=== PATIENT | male | born 1990 | race Caucasian/White ===

== ENCOUNTER 2016-10-23 07:35 | Inpatient (IN) | payer BC, OTHER ==
[~2016-10-23] VITALS: Ht 180.3 cm; Wt 72.6 kg
[~2016-10-23 07:35] MED LIST: Baclofen PO; Benzocaine/Menth/Cetylpyrd Cl MM; CLON0.1T14 PO; DICY20TA28 PO; Famotidine PO; Gabapentin PO; HYDR-3895 PO; Ibuprofen PO; QUET25TA PO; TRAZ-147 PO; Trazodone Hcl PO
[2016-10-24 12:50] VITALS: BP 137/67
--- NOTE | 2016-10-24 12:50 | NUR ---
ADMISSION NOTE ALLERGY-NKDA/NKFA STATUS-FULL CODE HEIGHT-5'11 WEIGHT-160IBS B/P-137/67,HR-106,TEMP-97.7,RR-17, SPO2-100%, PAIN-0/10 PCP-NONE PSYCHIATRIST-NONE PMH-ANXIETY, Bipolar, Crohn disease, Insomnia, Seizure. CIWA-12 COWS-7 Pt is a 25 year old male, admitted on 10/24/16 at 1250 for BENZO/Heroin/Crystal Meth Dependence. Pts skin and body check completed, Pt noted with right arm abscess . Pt awake, alert, oriented x4, gait steady, pt is ambulatory without assistance. Pt is primary source of information, pt is intoxicated and unable to give specifics about his entire medical history and substance use history, information consistent, speech coherent. Pt brought home medications with him which were reconciled. Pt refused Flu and PNA Vaccinations. His last BM was on 10/24/16. Pt states that he is currently unemployed and homeless. Pt states that he smokes 1 pack a day (20 cigarettes). Pt reported being in multiple treatment centers, his most current treatment center was a month ago. Pt stated that he relapsed on the day of his discharge from the center. Pt stated that he achieved 3 months of sobriety and that he relapsed about a month ago. Pt stated that he has not slept for the past 4 days. When asked what his withdrawal symptoms were pt stated that he gets; RESTLESS LEGS, AGITATED, ANXIOUS, TREMORS, CHILLS, VOMITING, AND LEG CRAMPS SUBSTANCE HISTORY: 1.ALPRAZOLAM-USING SINCE LAST WEEK 10/17/16 ON AND OFF, pt unable to verbalize a specific amount that he uses, last used was 10/21/16 AT 2100 2MG 2) KLONOPIN-SINCE LAST WEEK 10/17/16 ON AND OFF, pt unable to verbalize a specific amount that he uses, last used was 10/21/16 AT 2000 4MG 3) HEROIN-Pt reported that the first time he used this drug was about 20 years ago. For the last month he reports using 2 grams of tar heroin IV on daily basis. He stated that his last use was 09/25/16 at 1600 2 grams IV. 4) MARIJUANA- pt reported first using the drug about 20 years ago. Pt reports using unspecified quantity by oral inhalation on daily basis. Pt reported last use on 10/23/16. 5) CRYSTAL METH- Pt does not recall the first time he has used this drug, but sates that he has been using 2 grams IV on daily basis for about a month. He stated that his last use was also on 09/25/16 around 1600 2 grams IV. Pt cooperative, appears agitated and depressed, reports moderate anxiety. Educated on relaxation techniques (deep breathing) pt verbalized understanding. Pt denies SI/HI at this time, Pt reported hallucinations. Skin warm and moist from sweat, color pink, consistent throughout the body, pt reported chills. Eyes PERLLA, tremors noted and felt. Pt reported tingling. All extremities with full ROM. Lung sounds clear bilaterally, no cough present, pt denies SOB. Heart rate regular. Cap refill <3 sec. No edema noted. Abdomen soft, round, bowel sounds active x 4, non tender. Pt denies urinary difficulties, urine was provided and sent to lab. Pt oriented to unit, room, equipment, shown how to use call light, provided returned demonstration. Fall precautions and seizure in place. Side rails up x2, call light within reach, bed locked in low position. Dr Jeff saw pt and with new orders. Pt currently not on any taper but PRN's available for withdrawal. Will continue to monitor.
[2016-10-24] MEDS ORDERED: MIRALAX 17 GM POWD.PACK PO PRN (13:15)
[2016-10-24] MEDS ORDERED: BUPRENORPHINE HCL 2 MG TAB.SUBL SL PRN (13:15)
[2016-10-24] MEDS ORDERED: LORAZEPAM 2 MG/1 ML VIAL IM PRN (13:15)
[2016-10-24] MEDS ORDERED: LOPERAMIDE HCL 2 MG CAPSULE PO PRN ×2 (13:15)
[2016-10-24] MEDS ORDERED: DICYCLOMINE HCL 20 MG TABLET PO PRN (13:15)
[2016-10-24] MEDS ORDERED: ACETAMINOPHEN 325 MG TABLET PO PRN (13:15)
[2016-10-24] MEDS ORDERED: MAGNESIUM HYDROXIDE 30 ML LIQUID UDC PO PRN (13:15)
[2016-10-24] MEDS ORDERED: MAG HYDROX/AL HYDROX/SIMETH 30 ML LIQUID UDC PO PRN (13:15)
[2016-10-24] MEDS ORDERED: ONDANSETRON ODT 4 MG TAB.RAPDIS SL PRN (13:15)
[2016-10-24] MEDS ORDERED: PROMETHAZINE HCL 25 MG/1 ML VIAL IM PRN (13:15)
[2016-10-24] MEDS ORDERED: diphenhydrAMINE 50 MG CAPSULE PO PRN (13:15)
[2016-10-24] MEDS ORDERED: IBUPROFEN 600 MG TABLET PO PRN (13:15)
[2016-10-24] MEDS ORDERED: HYDROXYZINE PAMOATE 25 MG CAPSULE PO PRN (13:15)
[2016-10-24] MEDS ORDERED: LORAZEPAM 1 MG TABLET PO PRN ×2 (13:15)
[2016-10-24] MEDS ORDERED: CLONIDINE HCL 0.1 MG TABLET PO PRN (13:15)
--- NOTE | 2016-10-24 13:34 | NUR ---
PRN ATIVAN Pt noted with anxiety, restless, unable to still still, hallucinations, light headed, CIWA noted 12. Administered Ativan 1 mg as ordered. Safety measures in place, call light within reach. Will cont to monitor and reassess the pt.
--- NOTE | 2016-10-24 14:27 | NUR ---
MD communication Pt noted to be having hallucinations. Notified Dr Simmons, ordered seroquel 100mg PO x 1 now and to call back in 30-60 mins after administration. Orders entered, MD unable to enter orders.
[2016-10-24] MEDS ORDERED: QUETIAPINE FUMARATE 100 MG TABLET PO ONE (14:30)
--- NOTE | 2016-10-24 14:34 | NUR ---
REASSESSMENT Upon reassessment pt reported feeling a lot better, CIWA noted-9. Pt reported medication effective.
[2016-10-24] MEDS: GABAPENTIN 300 MG CAPSULE PO SCH ×2 (14:47→22:20)
--- NOTE | 2016-10-24 14:48 | NUR ---
X1 DOSE OF SEROQUEL Pt still noted having hallucinations, Administered Seroquel 100mg 1 tab as ordered by Dr. Simmons. Will cont to monitor.
[2016-10-24 15:40] LABS: *AMPHETAMINE, URINE POSITIVE (NEGATIVE); *BARBITURATE, URINE NEGATIVE (NEGATIVE); *CANNABINOID, URINE NEGATIVE (NEGATIVE); *COCCAINE, URINE NEGATIVE (NEGATIVE); *OPIATE, URINE POSITIVE (NEGATIVE); *PHENCYCLIDINE SCREEN,URINE NEGATIVE (NEGATIVE)
--- NOTE | 2016-10-24 15:48 | NUR ---
SEROQUEL REASSESSMENT Upon reassessment, pt noted sleeping quietly in his room, no s/s of distress noted. Medication effective. Dr. Iris anthony.
[2016-10-24 16:00] VITALS: BP 141/64
--- NOTE | 2016-10-24 17:04 | NUR ---
CARE ENDORSED All pertinent information given and care endorsed to nurse in charge.
--- NOTE | 2016-10-24 17:10 | NUR ---
START OF SHIFT Received endorsement from day shift nurse. Pt is lying in bed resting. He is a 25 yo male admitted to [facility] today for heroin, bzd, and crystal methamphetamine dependence. He is arousable to verbal stimulation. NKA, full code status, and on a regular diet. He has a PMH of seizure, chron's disease bipolar, and anxiety, On admission he admitted to using xanax 2mg per day since 10/17, klonopin 4 mg per day since 10/17, heroin 1-1.5grams perday since 10/17, and crystal methamphetamine 0.5-1gram per day since 10/17. Pt is resting comfortably in bed. Minimal s/s of withdrawal noted. Fall and seizure precautions in place. Bed is down with call light in reach.
--- NOTE | 2016-10-24 17:30 | NUR ---
IV line insertion 22G IV line started to L forearm, rapid blood return noted. x 3 attempts, pt is a hard stick. Dr Jeff ordered midline for IV vanco infusion, unable to start large bore IV d/t veins infiltrating. Right arm is warm to the touch and edema noted, unable to locate veins on R arm.
[2016-10-24] MEDS: IV NS 1000 ML 1,000 ML IV PRN (17:53)
[2016-10-24 18:05] LABS: BASOPHILS # (AUTO) 0.1 K/uL (0.0-0.2); BASOPHILS % (AUTO) 0.8 % (0.0-2.0); EOSINOPHILS # (AUTO) 0.4 K/uL (0.0-0.7); EOSINOPHILS % (AUTO) 5.8 % (0.0-7.0); HEMATOCRIT 41.5 % (40.0-50.0); HEMOGLOBIN 13.5 g/dL (14.0-18.0); LYMPHOCYTES # (AUTO) 1.6 K/uL (0.8-4.8); LYMPHOCYTES % (AUTO) 25.3 % (20.5-51.5); MEAN CORPUSCULAR HEMOGLOBIN 29.6 uug (27.0-31.0); MEAN CORPUSCULAR HGB CONC 32 g/dL (32.0-37.0); MEAN CORPUSCULAR VOLUME 91.2 fL (82.0-92.0); MONOCYTES # (AUTO) 0.7 K/uL (0.1-1.30); MONOCYTES % (AUTO) 10.9 % (0.0-11.0); NEUTROPHILS # (AUTO) 3.6 K/uL (1.8-8.9); NEUTROPHILS % (AUTO) 57.2 % (38.5-71.5); PLATELET COUNT (AUTO) 322 K/uL (150-450); RED BLOOD CELL COUNT(AUTO) 4.55 MIL/uL (4.70-6.10); WHITE BLOOD COUNT (AUTO) 6.4 K/uL (4.0-11.2)
[2016-10-24] MEDS ORDERED: QUETIAPINE FUMARATE 25 MG TABLET PO PRN (18:15)
[2016-10-24 18:34] LABS: ALANINE AMINOTRANSFERASE 39 U/L (16-63); ALBUMIN 3.6 g/dL (3.4-5.0); ALKALINE PHOSPHATASE 66 U/L (50-136); ASPARTATE AMINOTRANSFERASE 31 U/L (15-37); BILIRUBIN,TOTAL 0.5 mg/dL (0.2-1.0); CALCIUM 8.6 mg/dL (8.5-10.1); CARBON DIOXIDE 27 mmol/L (21-32); CHLORIDE 104 mmol/L (98-107); CREATININE 0.9 mg/dL (0.6-1.3); GFR 104 mL/min (>60); GLUCOSE 101 mg/dL (74-106); POTASSIUM 3.5 mmol/L (3.5-5.1); SODIUM SERUM 141 mmol/L (136-145); TOTAL PROTEIN, SERUM 7.1 g/dL (6.4-8.2); UREA NITROGEN, BLOOD 12 mg/dL (7-18)
[2016-10-24 18:37] LABS: ETHANOL < 3 MG/DL (0-0)
--- NOTE | 2016-10-24 19:08 | NUR ---
CLINICAL PHARMACY NOTE:VANCOMYCIN DOSING Request for vancomycin dosing on 25y/o male 5'11" 160lb for cellulitis Temp 97.7, BUN 12 Scr 0.9 WBC 97.7 Start vancomycin 1gm ivpb q8h estimate trough 14. Trough level to be drawn tomorrow evening. Will continue to monitor
[2016-10-24 19:09] LABS: HIV-1 p24 ANTIGEN NON REACTIVE (NONREACTIVE); HIV-1/2 ANTIBODY NON REACTIVE (NONREACTIVE)
[2016-10-24 20:00] VITALS: BP 124/66
[2016-10-24] MEDS ORDERED: VANCOMYCIN IV 1 G in PREMIXED 0 EACH IV SCH (20:00)
[2016-10-24] MEDS: DOXYCYCLINE HYCLATE 100 MG TABLET PO SCH (22:14)
[2016-10-24] MEDS: METHOCARBAMOL 750 MG TABLET PO PRN (22:32)
--- NOTE | 2016-10-24 22:45 | NUR ---
PRN Robaxin and Ibuprofen Pt woke up and c/o bilateral leg muscle cramping and headache. PRN Robaxin and Ibuprofen administered.
[2016-10-25] VITALS: BP 120/66
--- NOTE | 2016-10-25 01:15 | NUR ---
PRN Zofran Pt woke up and c/o nausea without any episodes of vomiting. PRN Zofran administered.
[2016-10-25] MEDS: IV NS 1000 ML 1,000 ML IV PRN (01:36)
[2016-10-25 04:00] VITALS: BP 121/72
--- NOTE | 2016-10-25 07:01 | NUR ---
Start of Shift Endorsement received from nightshift nurse. Pt is a 25 y/o male admitted for Heroin, Klonopin and Xanax dependence. Pt has been using for the last 7 days after relapsing on 10/17/16. Pt has been placed on a 3 day Subutex taper. Pt is tolerating taper, moderately withdrawing at this time AEB CIWA 5, COWS 9. PT received PRN Robaxin, Motrin and Zofran. Pt reports sleeping 10 hours. VS WNL, Full Code. PT is alert and oriented x4. Pt is in STABLE condition at this time. Remains compliant with medication and diet regimen. All needs have been met, All safety measures in place per hospital policy. Bed in lowest position, side rails up x2, call-light within reach. Will continue to monitor
--- NOTE | 2016-10-25 07:25 | NUR ---
END OF SHIFT Report provided to day shift nurse. Pt is lying in bed resting. He is a 25 yo male admitted to [facility] today for heroin, bzd, and crystal mehtamphetamine dependence. He is arousable to verbal stimulation and ambulatory. NKA, full code status, and on a regular diet. He has a PMH of seizure, chron's disease bipolar, and anxiety, On admission he admitted to using xanax 2mg per day since 10/17, klonopin 4 mg per day since 10/17, heroin 1-1.5grams perday since 10/17, and crystal methamphetamine 0.5-1gram per day since 10/17. He has a 22 gauge IV in the left forearm and receiving IV NS. He is receiving PO abx for cellulitis of the right arm and wrist. PRN Robaxin, Ibuprofen, and Zofran administered. Last COWS 9 and CIWA 5. He drank 100mL and slept 10 hours. Pt received 1500mL of IV fluids. Fall and seizure precautions in place. Bed is down with call light in reach.
[2016-10-25 08:00] VITALS: BP 113/61
[2016-10-25] MEDS ORDERED: TUBERCULIN,PURIF.PROT.DERIV. 5 TU/0.1 ML TEST ID ONE (09:00)
[2016-10-25] MEDS: DOXYCYCLINE HYCLATE 100 MG TABLET PO SCH ×2 (09:23→20:55)
[2016-10-25] MEDS: MULTIVITAMINS,THERAPEUTIC TABLET PO SCH (09:23)
[2016-10-25] MEDS: GABAPENTIN 300 MG CAPSULE PO SCH ×3 (09:23→20:55)
--- NOTE | 2016-10-25 09:25 | NUR ---
PRN Subutex Administered PRN Subutex for COWS score of 13 per protocol. Will Re-assess
--- NOTE | 2016-10-25 09:50 | NUR ---
Medication Re-assessment Medications was effective AEB COWS 6 from COWS 13 prior to medication.
[2016-10-25 12:00] VITALS: BP 108/68
[2016-10-25] MEDS ORDERED: BACLOFEN 20 MG TABLET PO PRN (13:30)
[2016-10-25] MEDS ORDERED: LORAZEPAM 1 MG TABLET PO ONE (13:30)
[2016-10-25] MEDS ORDERED: KETOROLAC TROMETHAMINE 30 MG INJ IM PRN (13:30)
[2016-10-25] MEDS ORDERED: BACLOFEN 20 MG TABLET PO SCH (13:30)
[2016-10-25] MEDS: BUPRENORPHINE HCL 2 MG TAB.SUBL SL SCH ×2 (14:08→20:54)
[2016-10-25 16:00] VITALS: BP 125/68
--- NOTE | 2016-10-25 18:52 | NUR ---
End of Shift Endorsement given to nightshift nurse. Pt is a 25 y/o male admitted for Heroin, Klonopin and Xanax dependence. Pt has been using for the last 7 days after relapsing on 10/17/16. Pt has been placed on a 3 day Subutex taper. Pt is tolerating taper, moderately withdrawing at this time AEB CIWA 3, COWS 8. PT received PRN Subutex for COWS 13, medication was effective AEB COWS of 6. Educated pt on importance of developing the tools to help him stay sober and say no to medication, pt reports readiness for sobriety. Participated in groups and activities.Intake: 1927ml, BM x0, Void x3 . VS WNL, Full Code. PT is alert and oriented x4. Pt is in STABLE condition at this time. Remains compliant with medication and diet regimen. All needs have been met, All safety measures in place per hospital policy. Bed in lowest position, side rails up x2, call-light within reach. Will continue to monitor
[2016-10-25 20:00] VITALS: BP 128/81
--- NOTE | 2016-10-25 20:05 | NUR ---
START OF SHIFT Received report from day shift nurse. Pt attended a group meeting and returned to his room after. He is a 25 yo male admitted to [facility] today for heroin, bzd, and crystal methamphetamine dependence. He is arousable to verbal stimulation. NKA, full code status, and on a regular diet. He has a PMH of seizure, crohn's disease bipolar, and anxiety, On admission he admitted to using xanax 2mg per day since 10/17, klonopin 4 mg per day since 10/17, heroin 1-1.5grams perday since 10/17, and crystal methamphetamine 0.5-1gram per day since 10/17. He started a 3 day subutex taper today. Pt reports chills, flushing, goose bumps and body aches. Taper due tonight. Bed is down with call light in reach. Addendum: 10/26/16 at 0123 by JAE JEAN RN Pt is awake, A&O x4, and ambulatory.
[2016-10-25] MEDS: METHOCARBAMOL 750 MG TABLET PO PRN (20:55)
--- NOTE | 2016-10-25 20:56 | NUR ---
PRN Clonidine and Robaxin Pt c/o chills, anxiety, body aches 7/10, and is noted with goose flesh skin. PRN Clonidine and Robaxin administered.
[2016-10-25] MEDS ORDERED: BUPRENORPHINE HCL 2 MG TAB.SUBL SL SCH (21:00)
--- NOTE | 2016-10-25 22:00 | NUR ---
PRN Clonidine and Robaxin reassessment PRN Clonidine effective. Pt report relief of chills and feels more relaxed. PRN Robaxin somewhat effective. Pt's pain level reduced to 5/10.
[2016-10-26] VITALS: BP 110/60
[2016-10-26] MEDS: TRAZODONE 100 MG TABLET PO SCH ×2 (00:01→22:04)
--- NOTE | 2016-10-26 00:02 | NUR ---
PRN Baclofen Pt reports body aches have increased to 9/10. PRN Baclofen administered.
--- NOTE | 2016-10-26 01:00 | NUR ---
PRN Baclofen administration PRN Baclofen effective. Pt is lying in bed resting with eyes closed. Respirations even and unlabored. Bed is down with call light in reach.
--- NOTE | 2016-10-26 07:03 | NUR ---
Start of Shift Endorsement received from nightshift nurse. Pt is a 25 y/o male admitted for Heroin, Klonopin and Xanax dependence. Pt has been using for the last 7 days after relapsing on 10/17/16. Pt has been placed on a 3 day Subutex taper. Pt is tolerating taper, moderately withdrawing at this time AEB CIWA 3, COWS 6. PT received PRN Baclofen, clonidine and Robaxin. Pt reports sleeping 6 hours. VS WNL, Full Code. PT is alert and oriented x4. Pt is in STABLE condition at this time. Remains compliant with medication and diet regimen. All needs have been met, All safety measures in place per hospital policy. Bed in lowest position, side rails up x2, call-light within reach. Will continue to monitor
--- NOTE | 2016-10-26 07:20 | NUR ---
END OF SHIFT Report provided to day shift nurse. Pt is lying in bed resting. He is a 25 yo male admitted to [facility] today for heroin, bzd, and crystal methamphetamine dependence. He is arousable to verbal stimulation. NKA, full code status, and on a regular diet. He has a PMH of seizure, chron's disease bipolar, and anxiety, On admission he admitted to using xanax 2mg per day since 10/17, klonopin 4 mg per day since 10/17, heroin 1-1.5grams perday since 10/17, and crystal methamphetamine 0.5-1gram per day since 10/17. He started a 3 day subutex taper on 10/25. PRN Clonidine, Robaxin, and Baclofen administered. Last COWS 6 and CIWA 3. He drank 1060mL and slept for 6 hours. Bed is down with call light in reach.
[2016-10-26 08:00] VITALS: BP 105/58
[2016-10-26] MEDS: GABAPENTIN 300 MG CAPSULE PO SCH ×3 (08:35→20:35)
[2016-10-26] MEDS: MULTIVITAMINS,THERAPEUTIC TABLET PO SCH (08:35)
[2016-10-26] MEDS: BUPRENORPHINE HCL 2 MG TAB.SUBL SL SCH ×3 (08:35→20:35)
[2016-10-26] MEDS: DOXYCYCLINE HYCLATE 100 MG TABLET PO SCH ×2 (08:35→20:34)
[2016-10-26 12:00] VITALS: BP 98/63
[2016-10-26 16:00] VITALS: BP 108/66
--- NOTE | 2016-10-26 19:18 | NUR ---
End of Shift Endorsement given to nightshift nurse. Pt is a 25 y/o male admitted for Heroin, Klonopin and Xanax dependence. Pt has been using for the last 7 days after relapsing on 10/17/16. Pt has been placed on a 3 day Subutex taper. Pt is tolerating taper, mildly withdrawing at this time AEB CIWA 2, COWS 5. PT did not receive any prn medications. Educated pt on deep breathing techniques to help relieve mild to moderate anxiety. Participated in groups and activities.Intake: 1696ml, BM x1, Void x4 . VS WNL, Full Code. PT is alert and oriented x4. Pt is in STABLE condition at this time. Remains compliant with medication and diet regimen. All needs have been met, All safety measures in place per hospital policy. Bed in lowest position, side rails up x2, call-light within reach. Will continue to monitor
--- NOTE | 2016-10-26 19:30 | NUR ---
START OF SHIFT NOTE : Pt is a 25 y/o male admitted for Heroin, Klonopin and Xanax dependence. Pt has been using for the last 7 days after relapsing on 10/17/16. Pt has been placed on a 3 day Subutex taper, started on 10/25/2016. Pt is tolerating taper, mildly withdrawing at this time AEB CIWA 2, COWS 5 at 16:00. Pt is in STABLE condition at this time. Remains compliant with medication and diet regimen. All needs have been met, All safety measures in place per hospital policy. Bed in lowest position, side rails up x2, call-light within reach. Will continue to monitor and offer help
[2016-10-26 20:00] VITALS: BP 116/77
[2016-10-27 03:06] LABS: HCV AB >11.0 s/co ratio (0.0-0.9); HEPATITIS B CORE AB, IgM Negative (Negative); HEPATITIS B SURFACE AG Negative (Negative)
--- NOTE | 2016-10-27 06:52 | NUR ---
END OF SHIFT NOTE : Pt is a 25 y/o male admitted for Heroin, Klonopin and Xanax dependence. Pt has been using for the last 7 days after relapsing on 10/17/16. Pt has been placed on a 3 day Subutex taper, started on 10/25/2016. Pt is tolerating taper, mildly withdrawing at this time . Pt is in STABLE condition at this time. Pt remains compliant with the treatment plan. Pt denies nausea, vomiting and diarrhea. No PRNs were given during my shift. V/S remain WNL. RR=16, even and unlabored, lungs clear upon auscultation, abdomen soft and non- distended. Pt denies nausea, vomiting and diarrhea. LAST CIWA=2 ,COWS=2 at 0400 , INTAKE=2,100 ml, voided x 2, stool x2, slept 6 hours. Safety measures in place : bed on lowest position with side rails x2 up for safety, call light within reach. Will continue to monitor closely and offer help.
--- NOTE | 2016-10-27 07:08 | NUR ---
Start of Shift Endorsement received from nightshift nurse. Pt is a 25 y/o male admitted for Heroin, Klonopin and Xanax dependence. Pt has been using for the last 7 days after relapsing on 10/17/16. Pt has been placed on a 3 day Subutex taper. Pt is tolerating taper, mildly withdrawing at this time AEB CIWA 2, COWS 2. PT did not receive any PRN medications. Pt reports sleeping 6 hours. VS WNL, Full Code. PT is alert and oriented x4. Pt is in STABLE condition at this time. Remains compliant with medication and diet regimen. All needs have been met, All safety measures in place per hospital policy. Bed in lowest position, side rails up x2, call-light within reach. Will continue to monitor
[2016-10-27 08:00] VITALS: BP 116/56
[2016-10-27] MEDS ORDERED: BUPRENORPHINE HCL 2 MG TAB.SUBL SL SCH (09:00)
[2016-10-27] MEDS: SERTRALINE HCL 50 MG TABLET PO SCH (09:29)
[2016-10-27] MEDS: DOXYCYCLINE HYCLATE 100 MG TABLET PO SCH (09:29)
[2016-10-27] MEDS: MULTIVITAMINS,THERAPEUTIC TABLET PO SCH (09:29)
[2016-10-27] MEDS: GABAPENTIN 300 MG CAPSULE PO SCH ×3 (09:29→21:50)
[2016-10-27 12:00] VITALS: BP 125/74
[2016-10-27 16:00] VITALS: BP 122/79
[2016-10-27] MEDS ORDERED: Trazodone Hcl PO (18:06)
[2016-10-27] MEDS ORDERED: Ibuprofen PO (18:06)
[2016-10-27] MEDS ORDERED: QUET25TA PO (18:06)
[2016-10-27] MEDS ORDERED: Baclofen PO (18:06)
[2016-10-27] MEDS ORDERED: CLON0.1T14 PO (18:06)
[2016-10-27] MEDS ORDERED: Gabapentin PO (18:06)
[2016-10-27] MEDS ORDERED: DICY20TA28 PO (18:06)
[2016-10-27] MEDS ORDERED: Sertraline Hcl PO (18:06)
[2016-10-27] MEDS ORDERED: HYDR-3895 PO (18:06)
--- NOTE | 2016-10-27 18:58 | NUR ---
End of Shift Endorsement given to nightshift nurse. Pt is a 25 y/o male admitted for Heroin, Klonopin and Xanax dependence. Pt has been using for the last 7 days after relapsing on 10/17/16. Pt has been placed on a 3 day Subutex taper. Pt is tolerating taper, mildly withdrawing at this time AEB CIWA 1, COWS 1. PT did not receive any prn medications. Educated pt on importance of buildings tools necessary for sobriety. PT is scheduled to be discharged on 10/28/16. All documentation has been completed. Participated in groups and activities.Intake: 1700ml, Void x2, BM x1. VS WNL, Full Code. PT is alert and oriented x4. Pt is in STABLE condition at this time. Remains compliant with medication and diet regimen. All needs have been met, All safety measures in place per hospital policy. Bed in lowest position, side rails up x2, call-light within reach. Will continue to monitor
--- NOTE | 2016-10-27 19:25 | NUR ---
Start of Shift Patient Received. Patient is in activities participating in group meeting. Patient is a 25 year old male admitted on 10/24/16 for Opiate and Benzo Dependence, under the care of Dr. Jeff, received a modified Subutex taper. Patient verbalizes no known allergies, wishes to be full code, following a regular diet, skin is noted intact, placed on fall and seizure precautions. Past Medical History noted as Anxiety, Bipolar, HX of Sz, and Crohns Disease. Per endorsement, Patient is set for discharge tomorrow 10/28/16 to [facility]. No PRN Medication administered. Patient still to provide discharge urine drug screen and is aware. All needs attended to promptly. Will continue plan of care as ordered.
[2016-10-27 20:47] VITALS: BP 138/69
[2016-10-27] MEDS: TRAZODONE 100 MG TABLET PO SCH (21:50)
[2016-10-28 00:35] VITALS: BP 125/76
[2016-10-28 01:04] LABS: *AMPHETAMINE, URINE NEGATIVE (NEGATIVE); *BARBITURATE, URINE NEGATIVE (NEGATIVE); *CANNABINOID, URINE NEGATIVE (NEGATIVE); *COCCAINE, URINE NEGATIVE (NEGATIVE); *OPIATE, URINE POSITIVE (NEGATIVE); *PHENCYCLIDINE SCREEN,URINE NEGATIVE (NEGATIVE)
--- NOTE | 2016-10-28 04:17 | NUR ---
Vitals and COWS Patient refused vitals. Patient verbalized "please let me sleep." Patient respirations noted to be 14. COWS not able to be completed as per order. Will continue to monitor. Addendum: 10/28/16 at 0418 by MAK JETER LVN Amended: Links added.
--- NOTE | 2016-10-28 07:12 | NUR ---
End of Shift Patient is in bed sleeping, but easily arousbale to verbal stimuli. Breathing even and non labored. No signs of pain or discomfort noted. Patient is a 25 year old male admitted on 10/24/16 for Opiate and Benzo Dependence, under the care of Dr. Jeff, received a modified Subutex taper. Patient verbalizes no known allergies, wishes to be full code, following a regular diet, skin is noted intact, placed on fall and seizure precautions. Past Medical History noted as Anxiety, Bipolar, HX of Sz, and Crohns Disease. Per endorsement, Patient is set for discharge tomorrow 10/28/16 to [facility]. No PRN Medication administered. All needs attended to promptly. Will endorse to continue plan of care as ordered.
--- NOTE | 2016-10-28 07:30 | NUR ---
Start of shift note: pt is in stable condition no s/s of pain or discomfort. pt is admitted to [facility] for benzo,opiate/meth withdrawal/dependence. pt is sleeping in bed but is able to arouse. pt's v/s checked by [facility] and or within normal limits. pt is set for discharge today pts last cows is 3 and ciwa 4. D/T discharging, will continue to monitor pt for any changes and continue to meet pt's needs
[2016-10-28] MEDS: GABAPENTIN 300 MG CAPSULE PO SCH (08:53)
[2016-10-28] MEDS: SERTRALINE HCL 50 MG TABLET PO SCH (08:53)
[2016-10-28] MEDS: MULTIVITAMINS,THERAPEUTIC TABLET PO SCH (08:53)
--- NOTE | 2016-10-28 10:05 | NUR ---
discharge note: pt left unit in stable condition no s/s of withdrawal, discomfort or pain. pt teaching administered and pt verbalized understanding. pt's personal belongings were returned, pt will be transferred to [facility] via private car
== END 2016-10-28 10:05 | disposition home or self-care (01) | DRG 895 ==
LOC: SRC 10-24 12:13
PROVIDERS: ADMIT Internal Medicine; ATTEND Internal Medicine
PROC: HZ2ZZZZ Detoxification Services for Substance Abuse Treatment (ICD-10-PCS; principal; 2016-10-24)
PROC: HZ41ZZZ Group Counseling for Substance Abuse Treatment, Behavioral (ICD-10-PCS; 2016-10-25)
DX: F11.23 Opioid dependence with withdrawal (principal); L02.413 Cutaneous abscess of right upper limb; L03.113 Cellulitis of right upper limb; F15.23 Other stimulant dependence with withdrawal; F60.3 Borderline personality disorder; F41.9 Anxiety disorder, unspecified; Z83.3 Family history of diabetes mellitus; S51.831S Puncture wound without foreign body of right forearm, sequela; X78.8XXS Intentional self-harm by other sharp object, sequela; F17.210 Nicotine dependence, cigarettes, uncomplicated; Z59.0 Homelessness; G40.909 Epilepsy, unspecified, not intractable, without status epilepticus; B18.2 Chronic viral hepatitis C; F12.10 Cannabis abuse, uncomplicated; D63.8 Anemia in other chronic diseases classified elsewhere; F13.10 Sedative, hypnotic or anxiolytic abuse, uncomplicated; G47.00 Insomnia, unspecified; F32.9 Major depressive disorder, single episode, unspecified; Z59.1 Inadequate housing
CPT/HCPCS: 36415; 70030-TC; 71010; 80307; 80324; 80361; 83735; 85025; 86592; 86705; 86803; 87340; 87806; G6040-TC; J3370; J7030; Q0162; Q0163

== ENCOUNTER 2017-01-10 14:18 | Inpatient (IN) | payer BC, OTHER ==
[~2017-01-10] VITALS: Ht 180.3 cm; Wt 64.9 kg
[~2017-01-10 14:18] MED LIST changes: +Sertraline Hcl PO; -TRAZ-147 PO
[2017-01-10 14:20] VITALS: BP 148/81
--- NOTE | 2017-01-10 14:30 | NUR ---
Initial Assessment Pt is a 26-year-old male, NKA, here for Benzo dependence r/t Xanax 4mg PO daily for 1 month with last use yesterday morning, Opiates r/t Heroin 2g IV/day with last use 20 minutes before admission, methamphetamine $40 worth smoked for 1 month with last use yesterday and Gabapentin capsules dose 300mg each x 20 capsules/d with and extreme total dose of 16,000mg per day with last dose taken today and Dr. Allen is notified with pending Stat orders in process. Pt states that he started use as a teenager for over the last 10 years. HHx: Depression, Anxiety, Borderline Personality d/o, Smoker, Hep C+, Abscesses of FA r/t IV drug use with I&D done during his last stay here, Seizures r/t substance abuse w/d's, Multiple Relapses with return visits here and last stay here from end of September to October. FHx: Pt is confused and can not give me me known information and denies family substance abuse. Pt did not bring home medications. Pt denies having a psychologist or a psychiatrist but has a MD named Dr. Gloria as PCP. Pt is very agitated with anxiety & HR 116-120 bpm, very restlessness, tremors, headache, crawling skin, fatigue, labile, disoriented, generalized pain. Features symmetrical, PERRLA 1-2mm, weakness, mild dizziness with unsteady gait, visual disturbances, spasms of facial features and pt c/o numbness and tingling on scalp. Pt c/o chest pain 8/10 with dull aches and discomforts that are not penetrating or radiating; I notified Dr. Allen with new orders in process. Clear lung sound in bilateral U/L lobes, no SOB or acute respiratory distress present. Pt denies N/V/D yet is having difficulty with BM 's with last one today in small amount. Pt denies dysuria. Skin is not intact with skin lesions on bilateral feet and knees r/t him picking and scratching during anxiety and intoxication and Right FA inflammation which is raised and swollen. T. 97.8 HR 116 RR 20 BP 148/81 SpO2 98% RA Chest Pain 8/10 and Generalized Pain 5/10 COWS 13 CIWA 9
[2017-01-10] MEDS ORDERED: MAG HYDROX/AL HYDROX/SIMETH 30 ML LIQUID UDC PO PRN (14:45)
[2017-01-10] MEDS ORDERED: LOPERAMIDE HCL 2 MG CAPSULE PO PRN (14:45)
[2017-01-10] MEDS ORDERED: DIAZEPAM 5 MG TABLET PO PRN (14:45)
[2017-01-10] MEDS ORDERED: ACETAMINOPHEN 325 MG TABLET PO PRN (14:45)
[2017-01-10] MEDS ORDERED: IBUPROFEN 600 MG TABLET PO PRN (14:45)
[2017-01-10] MEDS ORDERED: MAGNESIUM HYDROXIDE 30 ML LIQUID UDC PO PRN (14:45)
[2017-01-10] MEDS ORDERED: LORAZEPAM 2 MG/1 ML VIAL IM PRN (14:45)
[2017-01-10] MEDS ORDERED: THIAMINE HCL 200 MG/2 ML VIAL IM ONE (14:45)
[2017-01-10] MEDS ORDERED: diphenhydrAMINE 50 MG CAPSULE PO PRN (14:45)
[2017-01-10] MEDS ORDERED: DIAZEPAM 10 MG TABLET PO PRN ×2 (14:45)
[2017-01-10] MEDS ORDERED: BUPRENORPHINE HCL 2 MG TAB.SUBL SL PRN (14:45)
[2017-01-10] MEDS ORDERED: MIRALAX 17 GM POWD.PACK PO PRN (14:45)
--- NOTE | 2017-01-10 15:30 | NUR ---
New Orders, Medication Administration-Valium ONCE New orders for Valium 10mg ONCE and Keppra 1000mg PO given as ordered for w/d restlessness, tremors, crawling skin, fatigue, confusion, generalized pain, weakness, mild dizziness, visual disturbances, spasms of facial features and pt c/o numbness and tingling COWS 13 CIWA 9. Will reassess in 1H.
[2017-01-10] MEDS ORDERED: LEVETIRACETAM 500 MG TABLET PO ONE (15:45)
[2017-01-10] MEDS: DIAZEPAM 10 MG TABLET PO SCH ×2 (15:48→20:03)
[2017-01-10 16:31] LABS: *AMPHETAMINE, URINE POSITIVE (NEGATIVE); *BARBITURATE, URINE NEGATIVE (NEGATIVE); *CANNABINOID, URINE NEGATIVE (NEGATIVE); *COCCAINE, URINE NEGATIVE (NEGATIVE); *OPIATE, URINE POSITIVE (NEGATIVE); *PHENCYCLIDINE SCREEN,URINE NEGATIVE (NEGATIVE)
[2017-01-10 18:00] VITALS: BP 148/81
--- NOTE | 2017-01-10 19:31 | NUR ---
End of Shift Pt is a 26-year old male, NKA, here for Benzo dependence r/t Xanax 4mg PO daily for 1 month with last use yesterday morning, Opiates r/t Heroin 2g IV/day with last use 20 minutes before admission, methamphetamine $40 worth smoked for 1 month with last use yesterday and Gabapentin capsules dose 300mg each x 20 capsules/d with and extreme total dose of 16,000mg per day with last dose taken today; 5 day Subutex and Valium tapers ordered and once time dose of Valium given during my shift. HHx: Depression, Anxiety, Borderline Personality d/o, Smoker, Hep C+, Abscesses of FA r/t IV drug use with I&D done during his last stay here, Seizures r/t substance abuse w/d's, Multiple Relapses with return visits here and last stay here from end of September to October. New orders for CXR, EKG, and labs. UDS obtained. Skin is not intact with multiple lesions in various regions so endorsed to night nurse to f/u with pictures needed. V/S stable, yet HR is elevated at 116-120 at admission and to monitor the V/S. Endorsed to night nurse to do seizure precautions in the room. Last COWS 13 CIWA 5.
[2017-01-10 20:00] VITALS: BP 103/54
--- NOTE | 2017-01-10 20:00 | NUR ---
Start of Shift Note: Report received from day shift nurse. Pt is a 22 Y/O male admitted on 01/10/2017 for medically-supervised withdrawal from opiates, benzodiazepines, gabapentin, and methamphetamine. Pt reports using 1.5-2gm IV heroin, 4mg Xanax PO, $40 worth of IV methamphetamine, and taking 1600mg gabapentin daily for one month. Pt is to start 5-day Valium and Subutex tapers tomorrow. Pt received with last COWS=13, CIWA=5, and Valium ONCE was given during day shift. Full code status, on regular diet, and reports NKA. Pt with unsteady gait, wheelchair assist. Pt reports PMHx: depression, anxiety, borderline personality DO, seizure r/t withdrawal, HEP-C+, multiple abscess: photo documentation (bilateral feet, right FA, bilateral knees, face) endorsed from dayshift. Pt received in room, noted to be restless with moderate tremor. Pt reports anxiety, agitation, diaphoresis, nausea. Bed is in low position and locked, side rails up x2, call light within reach. Will continue to monitor. Addendum: 01/11/17 at 0708 by MARQUIS DC RN Error: patient is 26yo
[2017-01-10] MEDS: LEVETIRACETAM 500 MG TABLET PO SCH (22:18)
--- NOTE | 2017-01-10 22:21 | NUR ---
PRN Valium 20mg: Patient noted with moderate tremor, unable to sit still, agitated. Patient reports nausea, diaphoresis, anxiety, agitation, tactile disturbances, sensitivity to light and sound. CIWA is 24. Administered PRN Valium 20mg PO as ordered according to CIWA score. Will reassess in one hour.
--- NOTE | 2017-01-10 23:25 | NUR ---
PRN Reassessment: Patient noted with decrease in tremor. Patient reports decrease in nausea, diaphoresis, anxiety, agitation, tactile disturbances. CIWA decreased from 24 to 8 one hour after PRN Valium 20mg administration. Will continue to monitor.
[2017-01-11] VITALS: BP 107/57
--- NOTE | 2017-01-11 | NUR ---
COWS/CIWA Deferred: COWS and CIWA deferred for sleep. V/S stable. All safety precautions are in place. Will continue to monitor. Addendum: 01/11/17 at 0045 by MARQUIS DC RN Amended: Links added.
[2017-01-11 04:00] VITALS: BP 92/61
--- NOTE | 2017-01-11 04:38 | NUR ---
PRN Subutex 4mg SL: Patient complains of anxiety, diaphoresis, chills, stomach cramps, 6/10 bone pain, lacrimation. Patient noted yawning multiple times during assessment, unable to sit still. COWS is 15. Administered PRN Subutex 4mg SL as ordered according to COWS score. Will reassess in 30 minutes.
--- NOTE | 2017-01-11 05:10 | NUR ---
PRN Reassessment: Patient reports decrease in anxiety, restlessness, stomach cramps, yawning, pain. COWS decreased from 15 to 8 thirty minutes after PRN Subutex 4mg SL administration. Will continue to monitor.
--- NOTE | 2017-01-11 07:07 | NUR ---
End of Shift Note: Pt is a 22 Y/O male admitted to [facility] on 01/10/2017 for medically-supervised withdrawal from opiates, benzodiazepines, gabapentin, and methamphetamine. Pt reports PMHx: depression, anxiety, borderline personality DO, seizure r/t withdrawal, HEP-C+. Pt is a full code. Pt is on a regular diet. Pt reports NKA. . Pt with unsteady gait, wheelchair assist. Pt reports using 1.5-2gm IV heroin, 4mg Xanax PO, $40 worth of IV methamphetamine, and taking 1600mg gabapentin daily for one month. Pt is to start 5-day Valium and Subutex tapers today. Scheduled medication regime effectively managed s/s of withdrawal this shift, in addition to PRN Valium 20mg for CIWA 24 and PRN Subutex 4mg for COWS 15; both effective. Last COWS=7 at 05:10, CIWA=10 at 04:00. V/S stable throughout shift. Total fluid intake this shift: 757 ml; output: urine x 0 and BM x 0. Pt is currently in bed and slept 6 hours this shift. All needs have been attended and met. Pt endorsed to day shift nurse. Addendum: 01/11/17 at 0708 by MARQUIS DC RN Error: 26 Y/O male, not 22
[2017-01-11 08:00] VITALS: BP 116/67
--- NOTE | 2017-01-11 08:00 | NUR ---
START OF SHIFT NOTE Patient is alert and orientated X 4. Patient slept 6 hours last night according to night nurse. Vital signs stable this morning, last CIWA 7 COWS 8 at 0800. Patient started a 5 say Subutex 5 day Valium taper. Patient appears anxious and complaining of body aches. Patient is laying in bed with respirations even and unlabored. All safety measures in place, call light within reach, bed locked and in lowest position. Will continue to monitor patient.
[2017-01-11] MEDS: DOCUSATE SODIUM 250 MG CAPSULE PO SCH (08:04)
[2017-01-11] MEDS: LEVETIRACETAM 500 MG TABLET PO SCH ×2 (08:04→20:14)
[2017-01-11] MEDS: BUPRENORPHINE HCL 2 MG TAB.SUBL SL SCH ×4 (08:05→20:14)
[2017-01-11] MEDS: FOLIC ACID 1 MG TABLET PO SCH (08:05)
[2017-01-11] MEDS: MULTIVITAMINS,THERAPEUTIC TABLET PO SCH (08:05)
[2017-01-11] MEDS: DIAZEPAM 10 MG TABLET PO SCH ×4 (08:05→20:14)
[2017-01-11] MEDS: THIAMINE HCL 100 MG TABLET PO SCH (08:05)
[2017-01-11] MEDS ORDERED: DIAZEPAM 10 MG TABLET PO PRN ×2 (08:45)
[2017-01-11] MEDS ORDERED: DIAZEPAM 5 MG TABLET PO PRN (08:45)
[2017-01-11] MEDS ORDERED: 5 DAY TAPER VALIUM-SERENITY PROTOCOL PO PRN (09:00)
[2017-01-11] MEDS ORDERED: 5 DAY TAPER BUPRENORPHINE -SERENITY PROTOCOL SL PRN (09:00)
[2017-01-11] MEDS ORDERED: TUBERCULIN,PURIF.PROT.DERIV. 5 TU/0.1 ML TEST ID ONE (09:00)
[2017-01-11 12:12] VITALS: BP 115/60
--- NOTE | 2017-01-11 13:40 | NUR ---
Therapist encouraged client to attend group therapy. Client stated that he would try to attend if he felt up to doing so.
[2017-01-11 16:00] VITALS: BP 114/64
[2017-01-11] MEDS ORDERED: [UNRECOGNIZED DRUG - OTHER] PO SCH (16:15)
[2017-01-11] MEDS ORDERED: QUETIAPINE FUMARATE 25 MG TABLET PO PRN ×2 (16:15→16:30)
[2017-01-11] MEDS: SERTRALINE HCL 50 MG TABLET PO SCH (17:07)
[2017-01-11] MEDS: BACLOFEN 10 MG TABLET PO SCH ×2 (18:51→20:14)
--- NOTE | 2017-01-11 19:10 | NUR ---
END OF SHIFT NOTE Patient is a 26 year old male admitted for heroin, Xanax, meth and gabapentin. His vital sign have been stable throughout the day. Last CIWA 10 COWS 12. Patient is showing signs of withdrawal as evidence by last CIAW/COWS. No prn meds were given . Patient has been resting in his room most of the day. He has been complaint with medications and MDs orders. Patient is on a 5 day Subutex 5 day Ativan taper, tolerating well. Patient has an unstable gait, uses a wheelchair to go to the smoking, uses call system to ask for assistance. All safety measures in place, call light within reach, bed locked and in lowest positions. All needs have been met. Will endorse to oncoming nurse.
[2017-01-11 20:00] VITALS: BP 112/61
--- NOTE | 2017-01-11 20:00 | NUR ---
Start of Shift Note: Report received from day shift nurse. Pt is a 26yo male admitted on 01/10/2017 for medically-supervised withdrawal from benzodiazepines, opiates, gabapentin, and methamphetamine. Pt reports using 1.5-2gm IV heroin, 4mg Xanax PO, $40 worth of IV methamphetamine, and taking 16,000mg gabapentin daily for one month. Pt is on 5-day Valium and Subutex tapers. Pt received with last COWS=12, CIWA=10, and no PRN medications were given during day shift. Full code, regular diet, and reports NKA. Pt with unsteady gait, wheelchair assist. Pt reports PMHx: anxiety, depression, borderline personality DO, seizure r/t withdrawal, HEP-C+. Pt received in room, noted with moderate tremor. Pt reports anxiety, agitation, diaphoresis, severe pain. Bed is in low position and locked, side rails up x2, call light within reach. Will continue to monitor.
[2017-01-11] MEDS: TRAZODONE 100 MG TABLET PO SCH ×2 (20:14→21:48)
[2017-01-11] MEDS ORDERED: [UNRECOGNIZED DRUG - OTHER] PO SCH (21:00)
[2017-01-11] MEDS: METHOCARBAMOL 750 MG TABLET PO PRN (21:48)
--- NOTE | 2017-01-11 21:48 | NUR ---
PRN Robaxin: Patient complains of severe myalgia. Administered PRN Robaxin as ordered. Will continue to monitor.
--- NOTE | 2017-01-11 22:50 | NUR ---
PRN Reassessment: Patient is in bed with eyes closed. Respirations are even and unlabored. No s/s of acute distress noted. PRN Robaxin effective AEB patient's ability to rest. Will continue to monitor.
[2017-01-12] VITALS (7 sets, daily range): BP systolic 95–116; BP diastolic 53–64
--- NOTE | 2017-01-12 04:00 | NUR ---
COWS and CIWA Deferred: COWS and CIWA deferred for sleep. V/S stable. All safety precautions are in place. Will continue to monitor. Addendum: 01/12/17 at 0458 by MARQUIS DC RN Amended: Links added.
--- NOTE | 2017-01-12 06:39 | NUR ---
End of Shift Note: Pt is a 26yo male admitted to [facility] on 01/10/2017 for medically-supervised withdrawal from opiates, benzos, gabapentin, and methamphetamine. Pt reports PMHx: seizure r/t withdrawal, Hep-C+, depression, anxiety, borderline personality DO. Pt is a full code. Pt reports NKA. Pt is on a regular diet. Pt with unsteady gait, wheelchair assist. Pt reports using 1.5-2gm IV heroin, 4mg Xanax PO, $40 worth of IV methamphetamine, and taking 16,000mg gabapentin daily for one month. Pt is on 5-day Valium and Subutex tapers. Scheduled medication regime effectively managed s/s of withdrawal this shift, in addition to PRN Robaxin for myalgia. Last COWS=7, CIWA=9 at 00:00. V/S stable throughout shift. Total fluid intake this shift: 855 ml; output: urine x 1 and BM x 0. Pt is currently in bed and slept 10 hours this shift. All needs have been attended and met. Pt endorsed to day shift nurse.
--- NOTE | 2017-01-12 07:23 | NUR ---
BEGINNING OF SHIFT Patient endorsement report received from journal entry audit clerk nurse, all pertinent information discussed. Patient is a 26 year old male admitted on 01/10/2017, patient currently With ongoing 5 day Subutex and 5 day Valium, taper as ordered, is currently on day 2 of taper. Patient with last ciwa score of: 9 and cow score of: 7. as per journal entry audit clerk. Patient received PRN: Robaxin, during journal entry audit clerk. patient slept for 10 hours. Patient received in room, awake alert and oriented x4, educated regarding plan of care and medication regimen for the day with good verbal understanding. Safety measures in place. call light kept with in reach, will continue to monitor closely.
[2017-01-12] MEDS: LEVETIRACETAM 500 MG TABLET PO SCH ×2 (09:00→21:19)
[2017-01-12] MEDS: DIAZEPAM 10 MG TABLET PO SCH ×3 (09:00→21:16)
[2017-01-12] MEDS: BUPRENORPHINE HCL 2 MG TAB.SUBL SL SCH ×3 (09:01→21:16)
[2017-01-12] MEDS: BACLOFEN 10 MG TABLET PO SCH (09:01)
[2017-01-12] MEDS: DOCUSATE SODIUM 250 MG CAPSULE PO SCH (09:01)
[2017-01-12] MEDS: MULTIVITAMINS,THERAPEUTIC TABLET PO SCH (09:01)
[2017-01-12] MEDS: SERTRALINE HCL 50 MG TABLET PO SCH (09:01)
[2017-01-12] MEDS: THIAMINE HCL 100 MG TABLET PO SCH (09:01)
[2017-01-12] MEDS: FOLIC ACID 1 MG TABLET PO SCH (09:01)
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
[2017-01-12] MEDS ORDERED: DIAZEPAM 5 MG TABLET PO PRN (13:00)
[2017-01-12] MEDS ORDERED: DIAZEPAM 10 MG TABLET PO PRN ×2 (13:00)
[2017-01-12] MEDS: LIDOCAINE 5% PATCH TD SCH (13:16)
[2017-01-12] MEDS: ACETAMINOPHEN ES 500 MG TABLET PO SCH ×2 (13:16→21:19)
[2017-01-12] MEDS: BACLOFEN 20 MG TABLET PO SCH ×2 (14:37→21:19)
[2017-01-12] MEDS ORDERED: BACLOFEN 10 MG TABLET PO SCH (15:00)
--- NOTE | 2017-01-12 15:05 | NUR ---
Therapist advised client of group times. Client is not attending today because he does not feel well.
[2017-01-12] MEDS: NEOMY/BACITRAC/POLYMI OINT 28.35 GM TUBE TOP SCH (17:06)
--- NOTE | 2017-01-12 18:54 | NUR ---
END OF SHIFT Patient alert and oriented x4, vital signs were stable during shift. patient compliant with therapeutic plan of care. 0900 Assessment patient presented with: heart rate of 82, c/o chills, difficulty sitting still, severe bone and joint aches, tremors that can be felt but not seen, irritable, anxiety, barely sweating and mild agitation with cow score of: 8 and ciwa score of: 7; 1300 assessment patient presented with: c/o chills, difficulty sitting still, severe bone and joint aches, tremors that can be felt but not seen, irritable, anxiety, barely sweating, mild agitation with cow score of: 7 and ciwa scor eof: 7; 1700 assessment patient presented with: c/o chills bone and joint aches, anxiety, barely sweating with cow score of: 6 and ciwa score of: 6. 1700 assessment patient presented with: Patient received no PRNs during shift. during shift patient was started on routine Tylenol and lidocaine patch d/t back pain, responding well to treatment effective as per patient. Patient encouraged to attend group therapies/sessions to learn new coping skills to prevent relapse. patient denies any SI/HI. safety measures in place. call light kept with in reach. patient endorsed to lieutenant shift supervisor nurse, all pertinent information discussed. will continue to monitor closely.
--- NOTE | 2017-01-12 20:00 | NUR ---
Start of Shift Note: Report received from day shift nurse. Pt is a 26yo male admitted on 01/10/2017 for medically-supervised withdrawal from benzodiazepines, neurontin, opiates, and methamphetamine. Pt reports using 4mg Xanax, 1.5-2gm IV heroin, $40 worth of IV methamphetamine, and taking 16,000mg neurontin daily for one month. Pt is on 5-day Valium and Subutex tapers. Pt received with last COWS=6, CIWA=6, and no PRN medications were given during day shift. Pt is a full code, on a regular diet, and reports NKA. Wheelchair assist for unsteady gait,. Pt reports PMHx: anxiety, depression, borderline personality DO, seizure r/t withdrawal, HEP-C+. Pt received in room and reports diaphoresis, chills, restlessness, generalized pain, tremor, and anxiety. Bed is in low position and locked, side rails up x2, call light within reach. Will continue to monitor.
[2017-01-12] MEDS: TRAZODONE 100 MG TABLET PO SCH (21:18)
[2017-01-13] VITALS: BP 96/60
--- NOTE | 2017-01-13 | NUR ---
COWS and CIWA Deferred: COWS and CIWA assessments are deferred for sleep. V/S stable. All safety precautions are in place. Will continue to monitor. Addendum: 01/13/17 at 0131 by MARQUIS DC RN Amended: Links added.
--- NOTE | 2017-01-13 04:00 | NUR ---
Vitals Refused, COWS/CIWA Deferred: Patient refuses vitals at this time. COWS/CIWA deferred for sleep. All safety precautions are in place. Will continue to monitor. Addendum: 01/13/17 at 0433 by MARQUIS CD RN Amended: Links added.
[2017-01-13] MEDS: ACETAMINOPHEN ES 500 MG TABLET PO SCH ×3 (05:00→21:37)
--- NOTE | 2017-01-13 06:55 | NUR ---
End of Shift Note: Pt is a 26M admitted on 01/10/2017 for medically-supervised withdrawal from opiates, BZO, neurontin, and methamphetamine. PMHx of SZ, Hep-C+, depression, anxiety, borderline personality DO. Full code, NKA, regular diet. Wheelchair assist for unsteady gait. Pt reported using 1.5-2gm IV heroin, 4mg Xanax, $40 worth of IV methamphetamine, and taking 16,000mg neurontin daily for one month. Pt is to start day 3 of 5-day Valium and Subutex tapers. Scheduled medication regime effectively managed s/s of withdrawal this shift, and no PRN medications were necessary. Last COWS=6, CIWA=7 at 20:00. V/S stable throughout shift. Total fluid intake this shift: 800 ml; output: urine x 1 and BM x 0. Pt is currently in bed and slept 9 hours this shift. All needs attended and met. Pt endorsed to day shift nurse.
[2017-01-13 08:00] VITALS: BP 95/66
--- NOTE | 2017-01-13 08:07 | NUR ---
START OF SHIFT Received patient this morning alert and oriented x4. Patient states he has bad body aches 8/10 on pain scale. He c/o abscess to upper buttock area it feels hardened. Will notify MD. He is on 5 day Valium/5 day Subutex taper. History of seizures. He is placed on seizure precautions. No PRNs given per night nurse. Patient slept 9 hours. COWS 7 CIWA 9 at 0800 this morning. Encouraged patient to drink increased amounts of fluids this shift. Encouraged attendance of groups and activities. Will provide safe and supportive environment. Informed patient to notify RN if s/s of w/d worsen. Will continue to monitor.
[2017-01-13] MEDS: FOLIC ACID 1 MG TABLET PO SCH (08:34)
[2017-01-13] MEDS: THIAMINE HCL 100 MG TABLET PO SCH (08:34)
[2017-01-13] MEDS: BACLOFEN 20 MG TABLET PO SCH ×3 (08:34→21:37)
[2017-01-13] MEDS: MULTIVITAMINS,THERAPEUTIC TABLET PO SCH (08:34)
[2017-01-13] MEDS: SERTRALINE HCL 50 MG TABLET PO SCH (08:34)
[2017-01-13] MEDS: LIDOCAINE 5% PATCH TD SCH (08:35)
[2017-01-13] MEDS: DIAZEPAM 5 MG TABLET PO SCH ×4 (08:35→21:37)
[2017-01-13] MEDS: DOCUSATE SODIUM 250 MG CAPSULE PO SCH (08:35)
[2017-01-13] MEDS: LEVETIRACETAM 500 MG TABLET PO SCH ×2 (08:35→21:38)
[2017-01-13] MEDS: NEOMY/BACITRAC/POLYMI OINT 28.35 GM TUBE TOP SCH ×2 (08:35→16:41)
[2017-01-13] MEDS ORDERED: BUPRENORPHINE HCL 2 MG TAB.SUBL SL SCH (09:00)
[2017-01-13 12:00] VITALS: BP 112/68
[2017-01-13] MEDS ORDERED: DIAZEPAM 10 MG TABLET PO PRN ×2 (12:45)
[2017-01-13] MEDS ORDERED: KETOROLAC TROMETHAMINE 30 MG INJ IM PRN (12:45)
[2017-01-13] MEDS: BUPRENORPHINE HCL 2 MG TAB.SUBL SL SCH ×2 (14:09→21:45)
--- NOTE | 2017-01-13 15:46 | NUR ---
ENDORSED PT TO MINERVA ARIAS Addendum: 01/13/17 at 1600 by SHAAN POLLACK RN disregard
[2017-01-13 16:00] VITALS: BP 109/60
--- NOTE | 2017-01-13 18:34 | NUR ---
END OF SHIFT NOTE Patient continues on 5 day Valium/5 day Subutex taper and tolerating well. No PRNs needed during shift as detox meds are effective. Last COWS 5 CIWA 6. Patient uses wheelchair for transportation due to weakness. Patient continues on seizure precautions. Patient isolated self in room during shift and slept most of the time. Patient presents with hardened abscess to upper buttock and left upper shoulder, MD made aware. All needs have been met. Safety measures in place. Will endorse to oncoming nurse.
[2017-01-13 20:00] VITALS: BP 110/65
--- NOTE | 2017-01-13 20:00 | NUR ---
Start of Shift Pt is a 26 year old male admitted for Benzo/Opiates, methamphetamine and Gabapentin dependence. Pt is placed on 5 day Valium and 5 day Subutex taper. Pt reports using Xanax 4mg, Heroin IV 1.5-2mg, Methamphetamine IV $40 worth and Gabapentin 99701cm/daily for 1 month. PMH: Depression, Anxiety, Borderline Personality DO, seizure withdrawal r/t withdrawals, HEP-C +. NKA, regular diet and full code. Pt uses wheelchair for unsteady gait. Upon assessment, pt presents with anxiety, chills, restlessness, tremors and body/joint aches. Denies SOB/chest pain, denies n/v/d, scheduled medication due. Safety measures in place, call light within reach, side rails up x2, bed locked and in low position. Will continue to monitor.
[2017-01-13] MEDS: TRAZODONE 100 MG TABLET PO SCH (21:37)
[2017-01-13] MEDS: SULFAMETH/TRIMETH 800/160 MG TABLET PO SCH (21:37)
[2017-01-14] VITALS: BP 96/65
--- NOTE | 2017-01-14 | NUR ---
Vital Signs BP 96/65, pulse 68, SpO2 97%, temp 98.1, no pain 0/10 CIWA/COWS deferred d/t pt sleeping to assess while pt is awake as ordered. Safety measures in place, Will continue to monitor.
[2017-01-14 04:00] VITALS: BP 104/51
--- NOTE | 2017-01-14 04:00 | NUR ---
Vital Signs BP 104/51, pulse 71, SpO2 96%, respirations 16 temp 98.4, no pain 0/10 CIWA/COWS deferred d/t pt sleeping to assess while pt is awake as ordered. Safety measures in place, Will continue to monitor.
[2017-01-14] MEDS: ACETAMINOPHEN ES 500 MG TABLET PO SCH ×3 (05:24→21:18)
[2017-01-14] MEDS: METHOCARBAMOL 750 MG TABLET PO PRN ×2 (05:27→18:10)
--- NOTE | 2017-01-14 05:27 | NUR ---
PRN Administration Pt reports body aches, rated 5/10, requested relief. Robaxin 750mg PRN administered. Safety measures in place. Will continue to monitor.
--- NOTE | 2017-01-14 06:27 | NUR ---
PRN Reassessment Upon reassessment, pt is resting in bed, eyes closed, sleeping. Safety measures in place. Will continue to monitor
--- NOTE | 2017-01-14 07:00 | NUR ---
End of Shift Pt is a 26 year old male admitted for Benzo/Opiates, methamphetamine and Gabapentin dependence. Pt is placed on 5 day Valium and 5 day Subutex taper. Pt reports using Xanax 4mg, Heroin IV 1.5-2mg, Methamphetamine IV $40 worth and Gabapentin 35256fa/daily for 1 month. PMH: Depression, Anxiety, Borderline Personality DO, seizure withdrawal r/t withdrawals, HEP-C +. NKA, regular diet and full code. Pt uses wheelchair for unsteady gait. During, pt presented with anxiety, chills, restlessness, tremors and body/joint aches scheduled taper medications administered, CIWA 9 & COWS 8. Robaxin 750mg PRN administered for body aches. Pt slept for 5 hours, intake of 500 ml PO, voids x1 and stool x0. Safety measures in place, call light within reach, side rails up x2, bed locked and in low position. Endorsed to day shift nurse
--- NOTE | 2017-01-14 07:00 | NUR ---
Start of Shift Endorsement received from nightshift nurse. PT is a 26 y/o male admitted for Heroin, Xanax and methamphetamine dependence. Pt has been placed on a 5 day Valium and 5 day Subutex taper. Pt is moderately withdrawing at this time AEB COWS 8, CIWA 5 at 0400. PT received PRN Robaxin. Pt reports sleeping 6 hours. Hx of HepC+, anxiety and depression. VS WNL. Full Code. PT is alert and oriented x4. Pt is in STABLE condition at this time. Remains compliant with medication and diet regimen. All needs have been met, All safety measures in place per hospital policy. Bed in lowest position, side rails up x2, call-light within reach. Will continue to monitor
[2017-01-14 08:00] VITALS: BP 107/53
[2017-01-14] MEDS: NEOMY/BACITRAC/POLYMI OINT 28.35 GM TUBE TOP SCH ×2 (09:00→16:48)
[2017-01-14] MEDS ORDERED: LIDOCAINE 5% PATCH TD SCH (09:00)
[2017-01-14] MEDS: BACLOFEN 20 MG TABLET PO SCH ×3 (09:05→21:18)
[2017-01-14] MEDS: LEVETIRACETAM 500 MG TABLET PO SCH ×2 (09:05→21:17)
[2017-01-14] MEDS: DOCUSATE SODIUM 250 MG CAPSULE PO SCH (09:05)
[2017-01-14] MEDS: SULFAMETH/TRIMETH 800/160 MG TABLET PO SCH ×2 (09:05→21:18)
[2017-01-14] MEDS: BUPRENORPHINE HCL 2 MG TAB.SUBL SL SCH ×3 (09:05→21:17)
[2017-01-14] MEDS: MULTIVITAMINS,THERAPEUTIC TABLET PO SCH (09:05)
[2017-01-14] MEDS: SERTRALINE HCL 50 MG TABLET PO SCH (09:05)
[2017-01-14] MEDS: THIAMINE HCL 100 MG TABLET PO SCH (09:06)
[2017-01-14] MEDS: FOLIC ACID 1 MG TABLET PO SCH (09:06)
[2017-01-14] MEDS: DIAZEPAM 5 MG TABLET PO SCH ×3 (09:06→21:18)
[2017-01-14] MEDS: DICYCLOMINE HCL 20 MG TABLET PO PRN ×2 (09:50→17:19)
--- NOTE | 2017-01-14 09:50 | NUR ---
PRN Medication Administered PRN Bentyl for stomach cramps and mild nausea.
--- NOTE | 2017-01-14 10:25 | NUR ---
Medication re-assessment Pt reports the stomach cramps have greatly decreased and nausea has stopped. Medication was effective.
[2017-01-14 12:00] VITALS: BP 109/55
[2017-01-14] MEDS ORDERED: BUPRENORPHINE HCL 2 MG TAB.SUBL SL PRN (15:30)
[2017-01-14 16:00] VITALS: BP 114/52
--- NOTE | 2017-01-14 17:16 | NUR ---
PRN Medications Administered PRN Bentyl and Zofran for nausea and stomach cramps.
[2017-01-14] MEDS: ONDANSETRON ODT 4 MG TAB.RAPDIS SL PRN ×2 (17:19→18:21)
--- NOTE | 2017-01-14 17:50 | NUR ---
Medication Re-assessment PT reports stomach cramping has eased and the pain has gone from 8/10 to 3/10 at this time. The nausea has also ceased. Medications were Effective.
--- NOTE | 2017-01-14 18:10 | NUR ---
WOLF Osborne Provided Robaxin for back spasms and back pain of 5/10.
--- NOTE | 2017-01-14 19:03 | NUR ---
End of Shift Endorsement given to nightshift nurse. PT is a 26 y/o male admitted for Heroin, Xanax and methamphetamine dependence. Pt has been placed on a 5 day Valium and 5 day Subutex taper. Pt is moderately withdrawing at this time AEB COWS 5, CIWA 4 at 1600. PT received PRN Robaxin, Bentyl x2 and Zofran. Pt did not participate in groups or activities. Pt refused to eat breakfast and lunch reporting loss of appetite. Encouraged pt to eat dinner and drink lots of fluids, educated was effective, pt ate 100% of dinner. Hx of HepC+, anxiety and depression. Intake: 2840ml, Void x4, BM x0. VS WNL. Full Code. PT is alert and oriented x4. Pt is in STABLE condition at this time. Remains compliant with medication and diet regimen. All needs have been met, All safety measures in place per hospital policy. Bed in lowest position, side rails up x2, call-light within reach. Will continue to monitor
--- NOTE | 2017-01-14 19:20 | NUR ---
Start of Shift Pt is a 26 year old male admitted for Benzo/Opiates, methamphetamine and Gabapentin dependence. Pt is placed on 5 day Valium and 5 day Subutex taper. Pt reports using Xanax 4mg, Heroin IV 1.5-2mg, Methamphetamine IV $40 worth and Gabapentin 96274cc/daily for 1 month. PMH: Depression, Anxiety, Borderline Personality DO, seizure withdrawal r/t withdrawals, HEP-C +. NKA, regular diet and full code. Pt uses wheelchair for unsteady gait. Upon assessment, pt presents with chills, tremors visible and body/joint aches all throughout body. Skin is flushed, eyes tearing. Pt denies SOB/chest pain, denies n/v/d, scheduled medications due. Safety measures in place, call light within reach, side rails up x2, bed locked and in low position. Will continue to monitor.
--- NOTE | 2017-01-14 19:21 | NUR ---
PRN Reassessment Zofran 4mg ODT administered during day for reports of nausea, no emesis. Upon reassessment, pt reports no longer feeling nausea. Needs met, safety measures in place. Will continue to monitor.
[2017-01-14 20:00] VITALS: BP 108/69
[2017-01-14] MEDS: TRAZODONE 100 MG TABLET PO SCH (21:18)
[2017-01-15] VITALS: BP 100/56
--- NOTE | 2017-01-15 | NUR ---
Vital Signs BP 100/56, pulse 64, SpO2 97%, respirations 18, temp 98.1, no pain 0/10 CIWA/COWS deferred d/t pt sleeping to assess while pt is awake as ordered. Safety measures in place, Will continue to monitor.
[2017-01-15 04:00] VITALS: BP 118/68
[2017-01-15] MEDS: ACETAMINOPHEN ES 500 MG TABLET PO SCH ×3 (04:52→21:29)
--- NOTE | 2017-01-15 07:00 | NUR ---
End of Shift Pt is a 26 year old male admitted for Benzo/Opiates, methamphetamine and Gabapentin dependence. Pt is placed on 5 day Valium and 5 day Subutex taper. Pt reports using Xanax 4mg, Heroin IV 1.5-2mg, Methamphetamine IV $40 worth and Gabapentin 62081cu/daily for 1 month. PMH: Depression, Anxiety, Borderline Personality DO, seizure withdrawal r/t withdrawals, HEP-C +. NKA, regular diet and full code. Pt uses wheelchair for unsteady gait. During shift, pt presented with chills, tremors visible and body/joint aches all throughout body. Skin is flushed, eyes tearing scheduled taper medications administered, COWS 7 & CIWA 4 at 0400. No PRN medications administered during shift. Pt slept for 4 hours, intake of 750 ml PO, voids x1 and stool x0. Safety measures in place, call light within reach, side rails up x2, bed locked and in low position. Endorsed to day shift nurse.
--- NOTE | 2017-01-15 07:09 | NUR ---
Start of Shift Endorsement received from nightshift nurse. PT is a 26 y/o male admitted for Heroin, Xanax and methamphetamine dependence. Pt has been placed on a 5 day Valium and 5 day Subutex taper. Pt is moderately withdrawing at this time AEB COWS 7, CIWA 4 at 0400. PT did not receive any PRN medications. Pt reports sleeping 4 hours. Hx of HepC+, anxiety and depression. VS WNL. Full Code. PT is alert and oriented x4. Pt is in STABLE condition at this time. Remains compliant with medication and diet regimen. All needs have been met, All safety measures in place per hospital policy. Bed in lowest position, side rails up x2, call-light within reach. Will continue to monitor
[2017-01-15 08:00] VITALS: BP 109/56
[2017-01-15] MEDS ORDERED: SERTRALINE HCL 50 MG TABLET PO SCH (09:00)
[2017-01-15] MEDS ORDERED: DIAZEPAM 5 MG TABLET PO SCH (09:00)
[2017-01-15] MEDS ORDERED: BUPRENORPHINE HCL 2 MG TAB.SUBL SL SCH ×2 (09:00)
[2017-01-15] MEDS: THIAMINE HCL 100 MG TABLET PO SCH (09:16)
[2017-01-15] MEDS: DOCUSATE SODIUM 250 MG CAPSULE PO SCH (09:16)
[2017-01-15] MEDS: SERTRALINE HCL 100 MG TABLET PO SCH (09:16)
[2017-01-15] MEDS: SULFAMETH/TRIMETH 800/160 MG TABLET PO SCH ×2 (09:16→21:29)
[2017-01-15] MEDS: LEVETIRACETAM 500 MG TABLET PO SCH ×2 (09:16→21:29)
[2017-01-15] MEDS: FOLIC ACID 1 MG TABLET PO SCH (09:16)
[2017-01-15] MEDS: BACLOFEN 20 MG TABLET PO SCH ×3 (09:16→21:29)
[2017-01-15] MEDS: MULTIVITAMINS,THERAPEUTIC TABLET PO SCH (09:16)
[2017-01-15] MEDS: NEOMY/BACITRAC/POLYMI OINT 28.35 GM TUBE TOP SCH ×2 (09:17→16:36)
[2017-01-15] MEDS: LIDOCAINE 5% PATCH TD SCH (09:17)
[2017-01-15 12:00] VITALS: BP 107/59
--- NOTE | 2017-01-15 13:26 | NUR ---
WOUND CARE CONSULT: PT PRESENTS WITH LARGE DISCOLORED AREA OF RT BUTTOCK WITH SOME INDURATION AND TENDERNESS, PRESENT ON ADMISSION. DEFER TO MD. TO CALL FOR SURGICAL CONSULT. WILL SEE PRN.
[2017-01-15] MEDS: BUPRENORPHINE HCL 2 MG TAB.SUBL SL SCH ×2 (15:14→21:30)
[2017-01-15] MEDS: DIAZEPAM 5 MG TABLET PO SCH ×2 (15:15→21:29)
[2017-01-15 16:00] VITALS: BP 105/62
--- NOTE | 2017-01-15 19:04 | NUR ---
End of Shift Endorsement given to nightshift nurse. PT is a 26 y/o male admitted for Heroin, Xanax and methamphetamine dependence. Pt has been placed on a 5 day Valium and 5 day Subutex taper. Pt is moderately withdrawing at this time AEB COWS 5, CIWA 5 at 1600. PT did not receive any PRN medications. Pt was examined wound nurse and got a wound consult. Pt has been scheduled for a Ultrasound of the effected area for farther evaluation. Educated the pt on importance of consuming high protein diet and drinking more water. Pt did not participate in groups or activities. . Hx of HepC+, anxiety and depression. Intake: 2447ml, Void x3, BM x0. VS WNL. Full Code. PT is alert and oriented x4. Pt is in STABLE condition at this time. Remains compliant with medication and diet regimen. All needs have been met, All safety measures in place per hospital policy. Bed in lowest position, side rails up x2, call-light within reach. Will continue to monitor
[2017-01-15 20:00] VITALS: BP 128/84
--- NOTE | 2017-01-15 20:00 | NUR ---
Start of Shift Pt is a 26 year old male admitted for Benzo/Opiates, methamphetamine and Gabapentin dependence. Pt is placed on 5 day Valium and 5 day Subutex taper. Pt reports using Xanax 4mg, Heroin IV 1.5-2mg, Methamphetamine IV $40 worth and Gabapentin 77200iv/daily for 1 month. PMH: Depression, Anxiety, Borderline Personality DO, seizure withdrawal r/t withdrawals, HEP-C +. NKA, regular diet and full code. Pt uses wheelchair for unsteady gait. Received report from day shift nurse Pt is scheduled for an ultrasound of the right buttock area for further evaluation. During time of assessment, pt presents with anxious, reports chills, muscle aches all over body, nasal stuffiness and teary eyes noted, respirations even/unlabored, scheduled taper medications due to be administered. Safety measures in place, call light within reach, side rails up x2, bed locked and in low position. Will continue to monitor.
--- NOTE | 2017-01-15 20:00 | NUR ---
End of Shift Pt is a 26 year old male admitted for Benzo/Opiates, methamphetamine and Gabapentin dependence. Pt is placed on 5 day Valium and 5 day Subutex taper. Pt reports using Xanax 4mg, Heroin IV 1.5-2mg, Methamphetamine IV $40 worth and Gabapentin 99821zo/daily for 1 month. PMH: Depression, Anxiety, Borderline Personality DO, seizure withdrawal r/t withdrawals, HEP-C +. NKA, regular diet and full code. Pt uses wheelchair for unsteady gait. Received report from day shift nurse Pt is scheduled for an ultrasound of the right buttock area for further evaluation. During time of assessment, pt presents with anxious, reports chills, muscle aches all over body, nasal stuffiness and teary eyes noted, respirations even/unlabored, scheduled taper medications due to be administered. Safety measures in place, call light within reach, side rails up x2, bed locked and in low position. Will continue to monitor. Addendum: 01/16/17 at 0021 by VALERY ARMAS RN CORRECTION START OF SHIFT
[2017-01-15] MEDS: TRAZODONE 100 MG TABLET PO SCH (21:29)
--- NOTE | 2017-01-16 | NUR ---
Pt refused to be woken up for 0000 VS COWS/CIWA deferred d/t pt sleeping - to assess while pt is awake. Safety measures in place. Will continue to monitor.
[2017-01-16 04:00] VITALS: BP 108/63
--- NOTE | 2017-01-16 04:00 | NUR ---
Vital Signs BP 108/63, pulse 83, SpO2 97%, respirations 12, temp 97.6, no pain 0/10 CIWA/COWS deferred d/t pt sleeping to assess while pt is awake as ordered. Safety measures in place, Will continue to monitor.
[2017-01-16] MEDS: ACETAMINOPHEN ES 500 MG TABLET PO SCH ×3 (05:03→22:14)
--- NOTE | 2017-01-16 07:00 | NUR ---
End of Shift Pt is a 26 year old male admitted for Benzo/Opiates, methamphetamine and Gabapentin dependence. Pts Valium and Subutex taper extended. Pt reports using Xanax 4mg, Heroin IV 1.5-2mg, Methamphetamine IV $40 worth and Gabapentin 01661fc/daily for 1 month. PMH: Depression, Anxiety, Borderline Personality DO, seizure withdrawal r/t withdrawals, HEP-C +. NKA, regular diet and full code. Pt uses wheelchair for unsteady gait. Pt is scheduled for an ultrasound of the right buttock area for further evaluation. During shift, pt presented with anxiety, reported chills, muscle aches all over body, nasal stuffiness and teary eyes noted scheduled taper medications administered during shift, No PRN medications administered during shift, COWS 6, CIWA 5. Pt slept for 5 hours, intake of 1186ml PO, voids x1 and stool x0. Safety measures in place, call light within reach, side rails up x2, bed locked and in low position. Endorsed to day shift nurse.
--- NOTE | 2017-01-16 07:45 | NUR ---
START OF SHIFT NOTE: Report received from virtual customer assistant nurse. Pt is a 26 year old male admitted 01-10-17 for Benzo/Opiates, methamphetamine and Gabapentin dependence. Pt is placed on 5 day Valium and 5 day Subutex taper. Tolerating well. Pt is alert and oriented X4. Color good, skin warm and dry. Resting in bed. Safety precautions observed. Call light within reach. Will continue to monitor.
[2017-01-16 07:50] LABS: BASOPHILS # (AUTO) 0.2 K/uL (0.0-8.0); BASOPHILS % (AUTO) 1.6 % (0.0-2.0); EOSINOPHILS # (AUTO) 0.3 K/uL (0.0-0.7); EOSINOPHILS % (AUTO) 2.4 % (0.0-7.0); HEMATOCRIT 42.4 % (40-50); HEMOGLOBIN 13.8 G/DL (14.0-18.0); LYMPHOCYTES # (AUTO) 1.9 K/UL (0.8-4.8); LYMPHOCYTES % (AUTO) 16.7 % (20.5-51.5); MEAN CORPUSCULAR HEMOGLOBIN 29.2 UUG (27.0-31.0); MEAN CORPUSCULAR HGB CONC 33 g/dL (32.0-37.0); MEAN CORPUSCULAR VOLUME 89.5 FL (82.0-92.0); MONOCYTES % (AUTO) 9.1 % (0.0-11.0); NEUTROPHILS # (AUTO) 7.9 K/UL (1.8-8.9); NEUTROPHILS % (AUTO) 70.2 % (38.5-71.5); PLATELET COUNT (AUTO) 405 K/UL (150-450); RED BLOOD CELL COUNT(AUTO) 4.73 MIL/UL (4.7-6.1); WHITE BLOOD COUNT (AUTO) 11.3 K/UL (4.0-11.2)
[2017-01-16 08:00] VITALS: BP 101/50
[2017-01-16 08:36] LABS: BILIRUBIN,TOTAL 0.3 mg/dL (0.2-1.0); CREATININE 1.1 mg/dL (0.6-1.3); POTASSIUM 4.2 mmol/L (3.5-5.1); TOTAL PROTEIN, SERUM 6.8 g/dL (6.4-8.2)
[2017-01-16] MEDS ORDERED: DIAZEPAM 5 MG TABLET PO SCH (09:00)
[2017-01-16] MEDS: NEOMY/BACITRAC/POLYMI OINT 28.35 GM TUBE TOP SCH ×2 (09:00→17:00)
[2017-01-16] MEDS: BUPRENORPHINE HCL 2 MG TAB.SUBL SL SCH ×2 (09:21→17:00)
[2017-01-16] MEDS: MULTIVITAMINS,THERAPEUTIC TABLET PO SCH (09:22)
[2017-01-16] MEDS: LEVETIRACETAM 500 MG TABLET PO SCH ×2 (09:22→22:14)
[2017-01-16] MEDS: LIDOCAINE 5% PATCH TD SCH (09:22)
[2017-01-16] MEDS: SULFAMETH/TRIMETH 800/160 MG TABLET PO SCH (09:22)
[2017-01-16] MEDS: THIAMINE HCL 100 MG TABLET PO SCH (09:22)
[2017-01-16] MEDS: SERTRALINE HCL 100 MG TABLET PO SCH (09:22)
[2017-01-16] MEDS: BACLOFEN 20 MG TABLET PO SCH ×3 (09:22→22:14)
[2017-01-16] MEDS: FOLIC ACID 1 MG TABLET PO SCH (09:22)
[2017-01-16] MEDS: DOCUSATE SODIUM 250 MG CAPSULE PO SCH (09:24)
--- NOTE | 2017-01-16 09:30 | NUR ---
VSS COWS 7 CIWA 7 c/o anxiety, muscle aches, chills. Also /o left butock pain. Awaiting ultrasound
[2017-01-16 09:45] LABS: EOSINOPHILS % (MANUAL) 3 % (0-8); LYMPHOCYTES % (MANUAL) 14 % (20-40); MONOCYTES % (MANUAL) 10 % (2-10); NEUTROPHILS % (MANUAL) 73 % (42-75)
--- NOTE | 2017-01-16 10:33 | NUR ---
Ultrasound of buttock done. Awaiting result
--- NOTE | 2017-01-16 12:29 | NUR ---
Dr. Fitzgerald, surgeon, here to see pt. Guided ultrasound with drainage of buttock abscess ordered.
[2017-01-16 13:36] VITALS: BP 97/60
--- NOTE | 2017-01-16 15:20 | NUR ---
Therapist reminded client of group times this morning. Client stated he won't be going because he does not feel well.
[2017-01-16 17:51] VITALS: BP 105/60
[2017-01-16] MEDS: SCOPOLAMINE HYDROBROMIDE 1.5 MG PATCH TD SCH ×2 (18:00→22:54)
--- NOTE | 2017-01-16 18:39 | NUR ---
END OF SHIFT NOTE: Report given to weight shifter nurse. Pt is a 26 year old male admitted 01-10-17 for Benzo/Opiates, methamphetamine and Gabapentin dependence. Pt is placed on 5 day Valium and 5 day Subutex taper. Tolerating well. Pt is alert and oriented X4. Color good, skin warm and dry. Vital signs remained stable throughout shift. Last COWS 7 CIWA 7 @ 1700. Pt had ultrasound of right buttock which showed probable abscess. To have guided ultrasound with drainage tomorrow. No prn medications administered. Resting in bed. Safety precautions observed.
--- NOTE | 2017-01-16 19:30 | NUR ---
START OF SHIFT Received 26 year old male patient admitted on 01/10/17 for Benzo, Opiate, Meth and Gabapentin dependency. Pt is full code with NKA. He reports a PMHx of depression, anxiety, borderline personality disorder, seizures related to withdrawal, hep C, and abscess on right buttock d/t IV drug use. He reports using Xanax 4 mg PO daily for one month. Last dose was 01/09. Heroin IV 1.5-2 gram IV daily for one month. Last dose was 01/10/17. Methamphetamine IV $40 worth daily for 1 month. Last dose was 01/09/17. And Gabapentin 1600 mg daily. Last dose 01/10/17. He is placed on 5 day Subutex and 5 day valium taper started on 01/10/17. Taper was modified on 01/15/17 and pt is tolerating well. Per endorsement, pt with new order for IV Bactrim d/t Right buttock abscess. Pts 1700 dose of Subutex was non administered d/t pt was asleep. Pt is alert and oriented x4, breathing is even and unlabored. Safety measures in place. Will continue to monitor.
[2017-01-16 20:00] VITALS: BP 103/48
[2017-01-16] MEDS: SULFAMETHOXAZOL/TRIMETHOPRI IV 10 ML in IV DEXTROSE 5% 250 ML IV SCH (21:00)
[2017-01-16] MEDS ORDERED: SULFAMETHOXAZOL/TRIMETHOPRI IV 15 ML in IV DEXTROSE 5% 250 ML IV SCH (22:00)
--- NOTE | 2017-01-16 22:00 | NUR ---
IV INSERTION Pt verbalized that he is a hard stick and refused IV insertion at this time. Pt requested to try again at a later time. Risks and benefits were explained x3, pt still refused. CN made aware. Will continue to monitor.
[2017-01-16] MEDS: TRAZODONE 100 MG TABLET PO SCH (22:14)
--- NOTE | 2017-01-16 22:54 | NUR ---
NURSING NOTE Pt complains of nausea, reports that Zofran is ineffective. Pt requests for Scopolamine to relieve his nausea. Scopolamine administered. Will monitor effectiveness. Addendum: 01/17/17 at 0716 by ESTHER FUNES RN scopolamine patch applied behind left ear.
--- NOTE | 2017-01-16 23:54 | NUR ---
NURSING NOTE Scopolamine effective. Pt reports decrease in nausea. Breathing even and unlabored. Safety measures in place. Will monitor.
[2017-01-17] VITALS: BP 96/52
--- NOTE | 2017-01-17 01:00 | NUR ---
IV INSERTION Attempted to insert IV. Pt refused. Risks and benefits were explained, pt still refused. Will continue to monitor.
--- NOTE | 2017-01-17 03:00 | NUR ---
IV INSERTION CN and primary nurse attempted to insert IV 2x and unsuccessful. Pt requested to have IV done in AM. Explained to pt reason for Dr. order and the importance of having IV with IV antibiotics to treat his abscess. Pt verbalized understanding but still requested for IV insertion in AM despite explanation of risks and benefits. TERRY Woodson to made aware. Will continue to monitor pt.
--- NOTE | 2017-01-17 04:00 | NUR ---
VITALS REFUSED/COWS & CIWA DEFERRED 0400 vitals refused by pt. COWS and CIWA deferred d/t pt lying in bed with eyes closed noted to be asleep. Respirations 16, breathing is even and unlabored. Safety measures in place. Will continue to monitor.
[2017-01-17] MEDS: ACETAMINOPHEN ES 500 MG TABLET PO SCH ×3 (05:59→22:15)
--- NOTE | 2017-01-17 07:15 | NUR ---
END OF SHIFT Pt is a 26 year old male patient admitted on 01/10/17 for Benzo, Opiate, Meth and Gabapentin dependency. Pt is full code with NKA. He reports a PMHx of depression, anxiety, borderline personality disorder, seizures related to withdrawal, hep C, and abscess on right buttock d/t IV drug use. He continues on his modified Valium and Subutex taper and tolerating well. At 2254 he received Scopolamine d/t complaints of nausea. Medication was effective. Pt refused IV insertion x3 times. Risk and benefits were explained to pt. But pt still refused. He slept a total of 7 hrs, Intake: Void: BM: COWS: 5, CIWA:4. Pt remains alert and oriented x4, breathing is even and unlabored. Safety measures in place. Endorsed to oncoming shift.
[2017-01-17 08:00] VITALS: BP 93/50
[2017-01-17] MEDS: MULTIVITAMINS,THERAPEUTIC TABLET PO SCH (08:13)
[2017-01-17] MEDS: BACLOFEN 20 MG TABLET PO SCH ×3 (08:16→22:15)
[2017-01-17] MEDS: THIAMINE HCL 100 MG TABLET PO SCH (08:16)
[2017-01-17] MEDS: LEVETIRACETAM 500 MG TABLET PO SCH ×2 (08:16→22:15)
[2017-01-17] MEDS: SERTRALINE HCL 100 MG TABLET PO SCH (08:16)
[2017-01-17] MEDS: METHOCARBAMOL 750 MG TABLET PO PRN (08:16)
[2017-01-17] MEDS: DOCUSATE SODIUM 250 MG CAPSULE PO SCH (08:16)
[2017-01-17] MEDS: FOLIC ACID 1 MG TABLET PO SCH (08:16)
--- NOTE | 2017-01-17 08:16 | NUR ---
PRN ROBAXIN Patient complained of body aches 8/10, mainly on lower legs and back. PRN Robaxin was given. Will monitor effectiveness of medication.
[2017-01-17] MEDS: NEOMY/BACITRAC/POLYMI OINT 28.35 GM TUBE TOP SCH ×2 (08:22→16:28)
[2017-01-17] MEDS: LIDOCAINE 5% PATCH TD SCH (08:24)
--- NOTE | 2017-01-17 08:41 | NUR ---
START OF SHIFT Received report from overnight babysitter nurse. Patient is 26 year old male admitted for medically supervised withdrawal from heroin and methamphetamines. Patient is full code with NKA. On Subutex taper this AM. On assessment this AM: CIWA: 10 and COWS: 8. Denies SOB, chest pain. vitals signs WNL. Reports nausea, anxiety, tremors, stomach cramps, body aches (8/10, prn robaxin given) and sweating, dilated pupil noted. Med compliant with AM meds. Patient reported poor appetite and did not consume his breakfast. Patient was encouraged to attend group meetings today. Will continue to monitor patient.
[2017-01-17] MEDS ORDERED: BUPRENORPHINE HCL 2 MG TAB.SUBL SL SCH (09:00)
[2017-01-17] MEDS: SULFAMETHOXAZOL/TRIMETHOPRI IV 10 ML in IV DEXTROSE 5% 250 ML IV SCH ×2 (09:00→13:40)
--- NOTE | 2017-01-17 09:00 | NUR ---
IV MED AND IV INSERTION REFUSAL (BACTRIM IV) Patient refused IV insertion and administration of antibiotiic IV at this time. Patient states he wants to speak to the Md first. Will notify Md.
--- NOTE | 2017-01-17 09:16 | NUR ---
PRN EFFECTIVENESS (ROBAXIN) Patient reports decreased pain to 7/10 from 8/10 on BLE and back. Declined prn ibuprofen when offered.
--- NOTE | 2017-01-17 10:15 | NUR ---
ULTRASOUND GUIDED WITH DRAINAGE PROCEDURE Consent obtained from patient, signed and dated. Radiologist and US tech (Sukh) were at bedside to perform the procedure on the R buttock. Photo of the site taken by this headline writer prior to application of dressing and tegaderm. Patient tolerated procedure.
--- NOTE | 2017-01-17 11:15 | NUR ---
WOUND CULTURE Sample collected during US guided with drainage procedure on R buttock was sent for wound culture as ordered.
[2017-01-17 12:00] VITALS: BP 109/77
[2017-01-17] MEDS ORDERED: DIAZEPAM 5 MG TABLET PO PRN (12:00)
--- NOTE | 2017-01-17 13:06 | NUR ---
22 G IV INSERTED TO RIGHT FOREARM. BLOOD RETURN PRESENT AND FLUSHED WITH NS SUCCESSFULLY. DRESSING SECURED.
[2017-01-17] MEDS: BUPRENORPHINE HCL 2 MG TAB.SUBL SL SCH ×2 (13:47→22:16)
--- NOTE | 2017-01-17 13:48 | NUR ---
PRN KETOROLAC IM INJECTION Patient complained of unresolved pain 8/10 body aches. PRN ketorolac IM given. will monitor effectiveness of medication
--- NOTE | 2017-01-17 14:48 | NUR ---
REASSESSMENT PRN KETOROLAC IM INJECTION Patient reports pain to 6/10 and more comfortable when asleep.
[2017-01-17 16:00] VITALS: BP 101/46
--- NOTE | 2017-01-17 16:43 | NUR ---
REASSESSMENT PRN VISTARIL Patient reports vistaril was effective, resolved anxiety
[2017-01-17] MEDS: DIAZEPAM 5 MG TABLET PO SCH ×2 (17:06→22:15)
--- NOTE | 2017-01-17 17:10 | NUR ---
PRN BENTYL patient complained of stomach cramps, prn bentyl given. will monitor effectiveness of medication.
[2017-01-17] MEDS: DICYCLOMINE HCL 20 MG TABLET PO PRN (17:11)
--- NOTE | 2017-01-17 17:18 | NUR ---
PRN ROBAXIN Patient complained of body ache 4/10, prn robaxin given. will monitor effectiveness of med.
[2017-01-17] MEDS ORDERED: BISACODYL 5 MG TABLET.DR PO PRN ×2 (18:00→18:15)
[2017-01-17] MEDS ORDERED: IV D5W-0.45% NS 1000 ML BAG IV SCH (18:00)
--- NOTE | 2017-01-17 18:10 | NUR ---
REASSESSMENT PRN BENTYL Patient reports bentyl was effective, less stomach cramping.
--- NOTE | 2017-01-17 18:18 | NUR ---
REASSESSMENT (PRN ROBAXIN) Patient reports pain decreased to 2/10.
[2017-01-17] MEDS: IV D5 1/2 NS 1000 ML 1,000 ML IV SCH (18:20)
--- NOTE | 2017-01-17 19:15 | NUR ---
START OF SHIFT Received 26 year old male patient admitted on 01/10/17 for Benzo, Opiate, Meth and Gabapentin dependency. Pt is full code with NKA. He reports a PMHx of depression, anxiety, borderline personality disorder, seizures related to withdrawal, hep C, and abscess on right buttock d/t IV drug use. He reports using Xanax 4 mg PO daily for one month. Last dose was 01/09. Heroin IV 1.5-2 gram IV daily for one month. Last dose was 01/10/17. Methamphetamine IV $40 worth daily for 1 month. Last dose was 01/09/17. And Gabapentin 1600 mg daily. Last dose 01/10/17. Pt continues on modified Ativan and Subutex taper and tolerating well. Per endorsement, pt received Ultrasound drainage to right buttock and tolerated well. Dressing is to be changed PRN. Pt received PRN Toradol, and Bentyl. Pt also with IV on right forearm gauge 22 with D51/2 NS running at 125 mL/hr. Pt also receiving Bactrim IV. Pt is alert and oriented x4, breathing is even and unlabored, safety measures in place. Will continue to monitor.
--- NOTE | 2017-01-17 19:39 | NUR ---
END OF SHIFT Patient is 26 year old male admitted for medically supervised withdrawal from heroin and methamphetamines. Patient is full code with NKA. On 5-day Subutex Taper. Most recent CIWA: 6 and COWS: 6. Patient reports body aches, tremors and anxiety. Patient is med compliant this shift. Patient reports his routine medications and the ketorolac injection help with body aches. Patient received his antibiotic IV (Bactrim) after IV insertion. Patient complained of not having BM for few days due to poor appetite but he refused prn medications (miralax) as he cannot tolerate drinking fluids. Patient has new prn bysacodyl tab ordered for him but he does not want to take it at this time, concerned he will have diarrhea afterwards. Patient states if he does not have BM this evening, he will notify the right of way appraiser RN (endorsed to oncoming RN). Patient is now receiving D5/NS 0.45% at 125ml/hr. night time nannyright of way appraiser will continue to monitor patient.
[2017-01-17 20:00] VITALS: BP 117/73
--- NOTE | 2017-01-17 21:00 | NUR ---
Bactrim IV Antibiotics Administration The scheduled dose for 2099 was not scanned. Nurse in the AM shift scanned the dose for 2099 instead of the one scheduled at 0900 when she administered the IV medication during her shift. Bactrim IV Antibiotics scheduled for 2099 administered as scheduled.
[2017-01-17] MEDS: TRAZODONE 100 MG TABLET PO SCH (22:15)
[2017-01-18] VITALS: BP 100/48
--- NOTE | 2017-01-18 | NUR ---
COWS/CIWA DEFERRED COWS/CIWA deferred d/t order is Q4H while awake. Pt lying in bed with eyes closed noted to be asleep. Respirations 16, breathing is even and unlabored, safety measures in place. Will continue to monitor.
--- NOTE | 2017-01-18 04:00 | NUR ---
VITALS REFUSED, COWS/CIWA DEFERRED 0400 vitals refused. COWS/CIWA deferred d/t pt lying in bed with eyes closed noted to be asleep. Respirations 16, breathing is even and unlabored, safety measures in place. Will continue to monitor.
[2017-01-18] MEDS: ACETAMINOPHEN ES 500 MG TABLET PO SCH ×3 (06:12→21:36)
[2017-01-18] MEDS: IV D5 1/2 NS 1000 ML 1,000 ML IV SCH (06:12)
--- NOTE | 2017-01-18 07:06 | NUR ---
END OF SHIFT Pt is a 26 year old male patient admitted on 01/10/17 for Benzo, Opiate, Meth and Gabapentin dependency. Pt is full code with NKA. He reports a PMHx of depression, anxiety, borderline personality disorder, seizures related to withdrawal, hep C, and abscess on right buttock d/t IV drug use. Pt continues on modified Ativan and Subutex taper and tolerating well. Pt's IV on right forearm gauge 22 is patent and flushing well. D51/2 NS running at 125 mL/hr. Pt is also receiving IV Bactrim [id number]. He did not receive or request PRN medications. He slept a total of 7 hrs, Intake: 1355mL, Void: x2, BM: 0. COWS:7, CIWA:7. Pt remains alert and oriented x4, breathing is even and unlabored, safety measures in place. Endorsed to oncoming shift.
[2017-01-18 08:00] VITALS: BP 78/44
--- NOTE | 2017-01-18 08:00 | NUR ---
START OF SHIFT Pt 26 y/o male admitted for opiate and benzo dependence. Pt received in room with eyes closed resting, but easily arousable to name. Pt alert and oriented to name, place, and time. Perrla. Skin warm and slighlty moist to touch. Respirations even and unlabored. It was reported that pt slept for 7 hours last night. Bed on lowest position with side rails x 2 up for safety. Call light within reach. No distress noted at this time.
[2017-01-18 09:00] VITALS: BP 110/62
[2017-01-18] MEDS: NEOMY/BACITRAC/POLYMI OINT 28.35 GM TUBE TOP SCH ×2 (09:00→17:00)
[2017-01-18] MEDS ORDERED: BUPRENORPHINE HCL 2 MG TAB.SUBL SL SCH (09:00)
[2017-01-18] MEDS: DOCUSATE SODIUM 250 MG CAPSULE PO SCH (09:44)
[2017-01-18] MEDS: SERTRALINE HCL 100 MG TABLET PO SCH (09:44)
[2017-01-18] MEDS: LEVETIRACETAM 500 MG TABLET PO SCH ×2 (09:44→21:34)
[2017-01-18] MEDS: FOLIC ACID 1 MG TABLET PO SCH (09:44)
[2017-01-18] MEDS: BACLOFEN 20 MG TABLET PO SCH ×3 (09:44→21:35)
[2017-01-18] MEDS: MULTIVITAMINS,THERAPEUTIC TABLET PO SCH (09:44)
[2017-01-18] MEDS: THIAMINE HCL 100 MG TABLET PO SCH (09:44)
[2017-01-18] MEDS: LIDOCAINE 5% PATCH TD SCH (09:45)
--- NOTE | 2017-01-18 09:58 | NUR ---
IV Pt refusing to have Bactrim at this time. Pt stated will have IV bactrim [facility] 09[facility]
[2017-01-18] MEDS: SULFAMETHOXAZOL/TRIMETHOPRI IV 10 ML in IV DEXTROSE 5% 250 ML IV SCH ×2 (10:57→21:34)
[2017-01-18 12:00] VITALS: BP 95/52
--- NOTE | 2017-01-18 12:46 | NUR ---
[facility] Wound culture resulted and Dr. Allen made aware.
--- NOTE | 2017-01-18 13:04 | NUR ---
[facility] ENTRY Pt with c/o nausea. Zofran ODT prn per MD order offered, but pt refused.
[2017-01-18] MEDS ORDERED: DIAZEPAM 5 MG TABLET PO SCH (13:25)
[2017-01-18] MEDS ORDERED: DIAZEPAM 5 MG TABLET PO ONE (13:45)
[2017-01-18] MEDS: BUPRENORPHINE HCL 2 MG TAB.SUBL SL SCH ×2 (14:27→21:35)
[2017-01-18 16:00] VITALS: BP 103/43
--- NOTE | 2017-01-18 18:29 | NUR ---
END OF SHIFT Pt 26 y/o male admitted for opiate and benzo dependence. Pt alert and oriented to name, place, and time. Perrla. Skin warm and slighlty moist to touch. Respirations even and unlabored. Pt observed mostly isolative to room throughout the day. Pt did not attend group activity. Pt medication compliant and tolerated well. No ASE noted. Pt was on IV fluids D5 1/2 NS @ 125/mL and tolerated well today. Saline lock on right forearm 22g in tact and in place with no redness noted. Bed on lowest position with side rails x 2 up for safety. Call light within reach. No distress noted at this time.
--- NOTE | 2017-01-18 19:15 | NUR ---
START OF SHIFT NOTE : Pt 26 y/o male admitted for opiate and benzo dependence. Pt received in room with eyes closed resting, but easily arousable to name. Pt alert and oriented to name, place, and time. Perrla. Skin warm and slightly moist to touch. Respirations even and unlabored. Pt. is on D51/2NS IV drip at 125 ml/h, and Bactrim IVPB BID. Pt remains compliant with the treatment plan. V/S remain WNL. RR=16, even and unlabored, lungs clear upon auscultation, abdomen soft and non- distended. Pt denies nausea, vomiting and diarrhea. Safety measures in place : bed on lowest position with side rails x2 up for safety, call light within reach. Will continue to monitor closely and offer help.
[2017-01-18 20:00] VITALS: BP 95/45
[2017-01-18] MEDS: TRAZODONE 100 MG TABLET PO SCH (21:35)
[2017-01-19] MEDS: ACETAMINOPHEN ES 500 MG TABLET PO SCH ×3 (06:27→21:06)
--- NOTE | 2017-01-19 06:51 | NUR ---
END OF SHIFT NOTE : Pt 26 y/o male admitted for opiate and benzo dependence. Pt received in room with eyes closed resting, but easily arousable to name. Pt alert and oriented to name, place, and time. Perrla. Skin warm and slightly moist to touch. Respirations even and unlabored. Pt. was on D51/2NS IV drip at 125 ml/h, stopped after MN , is on Bactrim IVPB BID. Pt remains compliant with the treatment plan. No PRNs were given during my shift. V/S remain WNL. RR=16, even and unlabored, lungs clear upon auscultation, abdomen soft and non- distended. Pt denies nausea, vomiting and diarrhea. LAST CIWA= 3 ,COWS=3 at 0400 , [id number] ml, voided x 3, slept 4 hours. Safety measures in place : bed on lowest position with side rails x2 up for safety, call light within reach. Will continue to monitor closely and offer help.
--- NOTE | 2017-01-19 07:25 | NUR ---
Start of Shift Pt received from [facility] shift nurse. Pt is a 26 year old male admitted on 01/10/17 for Heroin, Xanax and methamphetamine detox. Pt with PMH of depression, anxiety, borderline personality DO, seizures, Hep C and presented with an abscess on his right buttock, requiring IV anti-biotic treatment. Pt is on universal, fall, and seizure precautions. Finishing his Subutex taper this morning, with last dose scheduled for 0900. Pt slept 4 hours last evening and did not receive any PRNs per [facility] nurse. Mechanical Engineering Professor encounters pt in his room lying on hospital bed. Pt is anxious, somatic and has a flat affect. Pt with many physical complaints, but is not in any apparent distress. Pt uses wheelchair to get around d/t pain associated with abscess. After several somatic complaints and writers assessment, pt immediately asks for smoking pass and goes to smoke, no apparent effects from physical complaints. Bed in low position with wheels locked and call light in reach. Will continue to monitor, support and encourage according to plan of care.
[2017-01-19 08:15] VITALS: BP 97/41
[2017-01-19] MEDS ORDERED: BUPRENORPHINE HCL 2 MG TAB.SUBL SL SCH (09:00)
[2017-01-19] MEDS ORDERED: SCOPOLAMINE HYDROBROMIDE 1.5 MG PATCH TD SCH (09:00)
[2017-01-19] MEDS: SULFAMETHOXAZOL/TRIMETHOPRI IV 10 ML in IV DEXTROSE 5% 250 ML IV SCH ×2 (09:05→21:05)
[2017-01-19] MEDS: LIDOCAINE 5% PATCH TD SCH (09:05)
[2017-01-19] MEDS: FOLIC ACID 1 MG TABLET PO SCH (09:06)
[2017-01-19] MEDS: LEVETIRACETAM 500 MG TABLET PO SCH ×2 (09:06→21:05)
[2017-01-19] MEDS: SERTRALINE HCL 100 MG TABLET PO SCH (09:06)
[2017-01-19] MEDS: MULTIVITAMINS,THERAPEUTIC TABLET PO SCH (09:06)
[2017-01-19] MEDS: BACLOFEN 20 MG TABLET PO SCH ×3 (09:06→21:05)
[2017-01-19] MEDS: THIAMINE HCL 100 MG TABLET PO SCH (09:06)
[2017-01-19] MEDS: DOCUSATE SODIUM 250 MG CAPSULE PO SCH (09:06)
[2017-01-19] MEDS: NEOMY/BACITRAC/POLYMI OINT 28.35 GM TUBE TOP SCH ×2 (09:07→17:00)
--- NOTE | 2017-01-19 11:12 | NUR ---
[facility] Positive Lab called to notify staff of positive MRSA of abscess on right buttock. MD notified and aware. MRSA has been added to pt instruction, central supply contacted and isolation cart in place. Will continue to monitor, support and encourage according to plan of care.
[2017-01-19 12:59] VITALS: BP 101/58
--- NOTE | 2017-01-19 14:40 | NUR ---
Admission Note Pt is a 23 year old female admitted to [facility] to detox from Heroin, Meth and Xanax. Pt states she has been using heroin and Xanax for approximately 6 or 7 years and uses up to 2g of heroin a day, as well as 2-8 mg of Xanax daily. Pt was admitted under the care of Dr. Allen. Pt is drowsy and lethargic on presentation, having used 0.5 mg Heroin and 2mg Xanax just prior to her admittance. Pt has difficulty staying awake and often, nods off during admit process. Pt is polite and continually apologizes for her nodding off. Pt denies any HI/SI and A/VH. Pt denies being hospitalized in the last month, but does endorse being here in 11/13. Pt brought home medications of Clonidine, but also states she has prescriptions for several anxiety medication, but does not take them. Pt states her medical conditions include sciatica, hypo-tension, anxiety and and has a history of drug related seizures. Pt does have some discoloration to her left AC joint, with no swelling or tenderness noted. Pt states, I missed while shooting up. It hurts a little, but thats what happens. Pt is full code with a regular diet. Pt has a steady gait when ambulating and is able to go outside for smoking prior to senior medical writer starting admit process. Pt initial COWS of 5 and CIWA of 3. Pt endorses having been to numerous treatment and detox centers and has been unable to gain more than 6 months of sobriety, that being in 2013 or 2014. Pt has no physical complaints and her physical assessment is all WNL. Pt reports her PCP to be Dr. Bush in [place]. Pt has been couch surfing with her fianc at friends homes. Pt had her urine tested and tested positive for Opiates, Benzos and amphetamines. HCG negative. Bed in lowest position with locks on and call light in reach. All safety measures in place. Addendum: 01/20/17 at 0711 by JAN ALANIZ RN Note entered on wrong pt. Disregard.
--- NOTE | 2017-01-19 15:49 | NUR ---
Client was prompted to attend group, and client stated he was not feeling well at this time.
--- NOTE | 2017-01-19 16:07 | NUR ---
Wound Care Refusal Extension Supervisor attempted to view pt's abscess on his right buttock to evaluate for dressing change. Pt refused to allow food writer to examine and stated, " it is good, no need." Extension Supervisor encouraged tp and educated pt on need for dressing change and cleaning, but pt continued to refuse. Will continue to monitor, support and encourage according to plan of care.
[2017-01-19 16:20] VITALS: BP 105/50
[2017-01-19] MEDS ORDERED: GABAPENTIN 300 MG CAPSULE PO SCH (18:00)
[2017-01-19] MEDS ORDERED: SULF1TAB48 PO (18:40)
[2017-01-19] MEDS ORDERED: LACT1CAP72 PO (18:40)
[2017-01-19] MEDS: SCOPOLAMINE HYDROBROMIDE 1.5 MG PATCH TD SCH (18:46)
--- NOTE | 2017-01-19 18:54 | NUR ---
Medication refusal Pt refused 1800 dose of Neurontin, stating, " I was abusing that. If I take that today tomorrow I will get a script and be doing [id number]. MD aware. Will continue to monitor, support and encourage according to plan of care.
--- NOTE | 2017-01-19 19:15 | NUR ---
START OF SHIFT NOTE : Pt 26 y/o male admitted for opiate and benzo dependence. Pt received in room with eyes closed resting, but easily arousable to name. Pt alert and oriented to name, place, and time. Perrla. Skin warm and slightly moist to touch. Respirations even and unlabored. Pt. is on Bactrim IVPB BID. Pt remains compliant with the treatment plan, but very concern about possible D/C tomorrow. Pt with many physical complaints, but is not in any apparent distress. Pt uses wheelchair to get around d/t pain associated with abscess. Pt. agrees to change dressing V/S remain WNL. RR=16, even and unlabored, lungs clear upon auscultation, abdomen soft and non- distended. Pt denies nausea, vomiting and diarrhea. Safety measures in place : bed on lowest position with side rails x2 up for safety, call light within reach. Will continue to monitor closely and offer help.
--- NOTE | 2017-01-19 19:18 | NUR ---
End of Shift Report given to [facility] nurse.. Pt is a 26 year old male admitted on 01/10/17 for Heroin, Xanax and methamphetamine detox. Pt with PMH of depression, anxiety, borderline personality DO, seizures, Hep C and presented with an abscess on his right buttock, requiring IV anti-biotic treatment. Pt received his IV ant-biotics today, but refused any dressing changes, nor for ticket writer to evaluate wound.Pt is on universal, fall, and seizure precautions. Finished his Subutex taper this morning, with last dose administered at 0900. Pt is anxious, somatic and has a flat affect. Pt with many physical complaints, but is not in any apparent distress. Pt uses wheelchair to get around d/t pain associated with abscess. Pt refused his 1800 Neurontin d/t previously abusing the medication. Pt currently lying in his bed resting. Bed in low position with locks on and call light within reach. All safety measures in place.
[2017-01-19 20:00] VITALS: BP 111/68
[2017-01-19] MEDS: TRAZODONE 100 MG TABLET PO SCH (21:05)
[2017-01-20 04:00] VITALS: BP 97/53
[2017-01-20] MEDS: ACETAMINOPHEN ES 500 MG TABLET PO SCH ×3 (06:34→23:10)
--- NOTE | 2017-01-20 06:49 | NUR ---
END OF SHIFT NOTE : Pt 26 y/o male admitted for opiate and benzo dependence. Pt received in room with eyes closed resting, but easily arousable to name. Pt alert and oriented to name, place, and time. Perrla. Skin warm and slightly moist to touch. Respirations even and unlabored. Pt. is on Bactrim IVPB BID. Pt remains compliant with the treatment plan, but very concern about possible D/C tomorrow. Pt with many physical complaints, but is not in any apparent distress. Pt uses wheelchair to get around d/t pain associated with abscess. Pt. agrees to change dressing. Pt remains compliant with the treatment plan. No PRNs were given during my shift. V/S remain WNL. RR=16, even and unlabored, lungs clear upon auscultation, abdomen soft and non- distended. Pt denies nausea, vomiting and diarrhea. LAST CIWA=3 ,COWS=2 at 0400 , QXXQGE=6942 ml, voided x 4, slept 6 hours. Safety measures in place : bed on lowest position with side rails x2 up for safety, call light within reach. Will continue to monitor closely and offer help.
--- NOTE | 2017-01-20 07:15 | NUR ---
Start of Shift Pt received from [facility] shift nurse. Pt is a 26 year old male admitted on 01/10/17 for Heroin, Xanax and methamphetamine detox. Pt with PMH of depression, anxiety, borderline personality DO, seizures, Hep C and presented with an abscess on his right buttock, requiring IV anti-biotic treatment. Pts abscess is positive for MRSA. Pt is on universal, fall, contact and seizure precautions. Pt slept 6 hours last evening and did not receive any PRNs per [facility] nurse. Pt is a pending discharge, but pt is anxious about his discharge and encorses fear of leaving [facility]. Fruit Bar Maker encounters pt in his room lying on hospital bed. Pt is anxious, somatic and has a flat affect. Pt uses wheelchair to get around d/t pain associated with abscess. Bed in low position with wheels locked and call light in reach. All safety measures in place. Will continue to monitor, support and encourage according to plan of care.
[2017-01-20 08:01] VITALS: BP 105/58
[2017-01-20] MEDS: DOCUSATE SODIUM 250 MG CAPSULE PO SCH (09:50)
[2017-01-20] MEDS: THIAMINE HCL 100 MG TABLET PO SCH (09:50)
[2017-01-20] MEDS: SERTRALINE HCL 100 MG TABLET PO SCH (09:50)
[2017-01-20] MEDS: MULTIVITAMINS,THERAPEUTIC TABLET PO SCH (09:50)
[2017-01-20] MEDS: FOLIC ACID 1 MG TABLET PO SCH (09:50)
[2017-01-20] MEDS: LEVETIRACETAM 500 MG TABLET PO SCH ×2 (09:50→23:10)
[2017-01-20] MEDS: BACLOFEN 20 MG TABLET PO SCH ×3 (09:50→23:10)
[2017-01-20] MEDS: LIDOCAINE 5% PATCH TD SCH (09:51)
[2017-01-20] MEDS: NEOMY/BACITRAC/POLYMI OINT 28.35 GM TUBE TOP SCH ×2 (09:51→16:10)
[2017-01-20] MEDS: SULFAMETHOXAZOL/TRIMETHOPRI IV 10 ML in IV DEXTROSE 5% 250 ML IV SCH ×2 (11:18→23:11)
[2017-01-20 12:52] VITALS: BP 110/52
--- NOTE | 2017-01-20 14:52 | NUR ---
Therapist reminded client of group times. Client stated he will try to make it to the afternoon group if he is feeling better.
[2017-01-20 15:37] LABS: BASOPHILS # (AUTO) 0.1 K/uL (0.0-8.0); BASOPHILS % (AUTO) 0.6 % (0.0-2.0); EOSINOPHILS # (AUTO) 0.1 K/uL (0.0-0.7); EOSINOPHILS % (AUTO) 1.1 % (0.0-7.0); HEMATOCRIT 45.5 % (40-50); HEMOGLOBIN 14.7 G/DL (14.0-18.0); LYMPHOCYTES # (AUTO) 1.8 K/UL (0.8-4.8); LYMPHOCYTES % (AUTO) 19.2 % (20.5-51.5); MEAN CORPUSCULAR HEMOGLOBIN 29.3 UUG (27.0-31.0); MEAN CORPUSCULAR HGB CONC 32 g/dL (32.0-37.0); MEAN CORPUSCULAR VOLUME 90.4 FL (82.0-92.0); MONOCYTES # (AUTO) 0.3 K/UL (0.1-1.30); MONOCYTES % (AUTO) 2.7 % (0.0-11.0); NEUTROPHILS # (AUTO) 7.2 K/UL (1.8-8.9); NEUTROPHILS % (AUTO) 76.4 % (38.5-71.5); PLATELET COUNT (AUTO) 560 K/UL (150-450); RED BLOOD CELL COUNT(AUTO) 5.03 MIL/UL (4.7-6.1); WHITE BLOOD COUNT (AUTO) 9.5 K/UL (4.0-11.2)
[2017-01-20 15:43] LABS: CREATININE 1.1 mg/dL (0.6-1.3); POTASSIUM 4.2 mmol/L (3.5-5.1)
[2017-01-20 16:40] VITALS: BP 103/68
--- NOTE | 2017-01-20 19:11 | NUR ---
End of Shift Public Safety Telecommunicator provided following information to accepting NOC nurse. Pt is a 26 year old male admitted on 01/10/17 for Heroin, Xanax and methamphetamine detox. Pt with PMH of depression, anxiety, borderline personality DO, seizures, Hep C. Presented with an abscess on his right buttock, requiring IV anti-biotic treatment. Pts abscess is positive for MRSA. Pt is on universal, fall, contact and seizure precautions. Pt is a pending discharge, but pt is anxious about his discharge and endorses fear of leaving [facility]. Pt has been calm, cooperative and polite this shift. Has been up ad-larry and has been ambulating without use of wheelchair. Last CIWA 1 and COWS 2 recorded at 1600. Bed in low position with wheels locked, side rails up x2 and call light in reach. All safety measures in place. No further comments, questions or concerns voiced by oncoming staff.
[2017-01-20 20:00] VITALS: BP 105/53
[2017-01-20] MEDS: TRAZODONE 100 MG TABLET PO SCH (23:10)
[2017-01-21] MEDS: ACETAMINOPHEN ES 500 MG TABLET PO SCH (05:00)
--- NOTE | 2017-01-21 06:36 | NUR ---
END OF SHIFT NOTE : Pt 26 y/o male admitted for opiate and benzo dependence. Pt received in room with eyes closed resting, but easily arousable to name. Pt alert and oriented to name, place, and time. Perrla. Skin warm and slightly moist to touch. Respirations even and unlabored. Pt. is on Bactrim IVPB BID. Pt remains compliant with the treatment plan, D/C day is today, UDS provided and sent to the lab. IV site removed, right buttock dressing changed. No PRNs were given during my shift. V/S remain WNL. RR=16, even and unlabored, lungs clear upon auscultation, abdomen soft and non- distended. Pt denies nausea, vomiting and diarrhea. LAST CIWA=1 ,COWS=2 at 0400 , PUAXKH=8742 ml, voided x 3, slept 5 hours. Safety measures in place : bed on lowest position with side rails x2 up for safety, call light within reach. Will continue to monitor closely and offer help.
[2017-01-21 06:49] LABS: *AMPHETAMINE, URINE NEGATIVE (NEGATIVE); *BARBITURATE, URINE NEGATIVE (NEGATIVE); *CANNABINOID, URINE NEGATIVE (NEGATIVE); *COCCAINE, URINE NEGATIVE (NEGATIVE); *OPIATE, URINE NEGATIVE (NEGATIVE); *PHENCYCLIDINE SCREEN,URINE NEGATIVE (NEGATIVE)
--- NOTE | 2017-01-21 07:00 | NUR ---
start of shift note: received pt from night supervisor nurse, pt is in stable condition at this time. no s/s of pain or discomfort. pt is admitted to [facility] for opiate/benzo/meth/gabapentin withdrawal/dependence. pt is set for discharge today. pt without A/R to [facility] MEDICATIONS. pt is medically cleared fo discharge. pt wound care rendered and IV site discontinued. will assist pt in discharging and will continue to monitor pt for any changes
[2017-01-21] MEDS: NEOMY/BACITRAC/POLYMI OINT 28.35 GM TUBE TOP SCH (09:00)
[2017-01-21] MEDS ORDERED: SULFAMETH/TRIMETH 800/160 MG TABLET PO ONE (09:00)
[2017-01-21] MEDS: DOCUSATE SODIUM 250 MG CAPSULE PO SCH (09:00)
[2017-01-21] MEDS: FOLIC ACID 1 MG TABLET PO SCH (09:00)
[2017-01-21] MEDS: LIDOCAINE 5% PATCH TD SCH (09:00)
[2017-01-21] MEDS: BACLOFEN 20 MG TABLET PO SCH (09:13)
[2017-01-21] MEDS: THIAMINE HCL 100 MG TABLET PO SCH (09:13)
[2017-01-21] MEDS: SERTRALINE HCL 100 MG TABLET PO SCH (09:13)
[2017-01-21] MEDS: MULTIVITAMINS,THERAPEUTIC TABLET PO SCH (09:13)
[2017-01-21] MEDS: LEVETIRACETAM 500 MG TABLET PO SCH (09:13)
[2017-01-21] MEDS ORDERED: SULFAMETH/TRIMETH 800/160 MG TABLET ONE (09:21)
--- NOTE | 2017-01-21 10:58 | NUR ---
discharge note: pt left the unit in stable condition no s/s of pain or discomfort or any withdrawal symptoms. pt teaching administered and pt verbalized understanding. V/S WNL. pt left with all personal belongings. and was transferred to [facility] sober living by his grandfather
== END 2017-01-21 10:58 | disposition home or self-care (01) | DRG 895 ==
LOC: SRC 14:18
PROVIDERS: ADMIT Internal Medicine; ATTEND Internal Medicine
PROC: HZ2ZZZZ Detoxification Services for Substance Abuse Treatment (ICD-10-PCS; principal; 2017-01-10)
PROC: HZ31ZZZ Individual Counseling for Substance Abuse Treatment, Behavioral (ICD-10-PCS; 2017-01-11)
PROC: HZ41ZZZ Group Counseling for Substance Abuse Treatment, Behavioral (ICD-10-PCS; 2017-01-13)
PROC: 0J993ZZ Drainage of Buttock Subcutaneous Tissue and Fascia, Percutaneous Approach (ICD-10-PCS; 2017-01-17)
DX: F11.23 Opioid dependence with withdrawal (principal); G92 Toxic encephalopathy; F33.3 Major depressive disorder, recurrent, severe with psychotic symptoms; L03.317 Cellulitis of buttock; L02.31 Cutaneous abscess of buttock; T42.6X1A Poisoning by other antiepileptic and sedative-hypnotic drugs, accidental (unintentional), initial encounter; Y92.89 Other specified places as the place of occurrence of the external cause; Z83.3 Family history of diabetes mellitus; S31.813S Puncture wound without foreign body of right buttock, sequela; B95.62 Methicillin resistant Staphylococcus aureus infection as the cause of diseases classified elsewhere; X78.8XXS Intentional self-harm by other sharp object, sequela; F60.3 Borderline personality disorder; F41.9 Anxiety disorder, unspecified; B19.20 Unspecified viral hepatitis C without hepatic coma; Z59.0 Homelessness; Z79.899 Other long term (current) drug therapy; F17.210 Nicotine dependence, cigarettes, uncomplicated; F15.23 Other stimulant dependence with withdrawal; M54.9 Dorsalgia, unspecified
CPT/HCPCS: 36415; 70030-TC; 71010; 75989; 80307; 80324; 80346; 80361; 85025; 85610; 85730; 86580; 87070; 87077; 93005; A4663; J1885; J3411; J3490; J7040; J7060; Q0162

== ENCOUNTER 2017-02-14 09:13 | Inpatient (IN) | payer BC, OTHER ==
[~2017-02-14] VITALS: Ht 180.3 cm; Wt 68.9 kg
[~2017-02-14 09:13] MED LIST changes: +LACT1CAP72 PO; +SULF1TAB48 PO
[2017-02-14] MEDS ORDERED: LOPERAMIDE HCL 2 MG CAPSULE PO PRN ×2 (11:30)
[2017-02-14] MEDS ORDERED: ACETAMINOPHEN 325 MG TABLET PO PRN (11:30)
[2017-02-14] MEDS ORDERED: ONDANSETRON 4 MG/2 ML VIAL IM PRN (11:30)
[2017-02-14] MEDS ORDERED: DICYCLOMINE HCL 20 MG TABLET PO PRN (11:30)
[2017-02-14] MEDS ORDERED: THIAMINE HCL 200 MG/2 ML VIAL IM ONE (11:30)
[2017-02-14] MEDS ORDERED: MIRALAX 17 GM POWD.PACK PO PRN (11:30)
[2017-02-14] MEDS ORDERED: MAG HYDROX/AL HYDROX/SIMETH 30 ML LIQUID UDC PO PRN (11:30)
[2017-02-14] MEDS ORDERED: IBUPROFEN 600 MG TABLET PO PRN (11:30)
[2017-02-14] MEDS ORDERED: MAGNESIUM HYDROXIDE 30 ML LIQUID UDC PO PRN (11:30)
[2017-02-14] MEDS ORDERED: LORAZEPAM 2 MG/1 ML VIAL IM PRN (11:30)
[2017-02-14] MEDS ORDERED: ONDANSETRON ODT 4 MG TAB.RAPDIS SL PRN (11:30)
[2017-02-14] MEDS ORDERED: LORAZEPAM 1 MG TABLET PO PRN (11:30)
[2017-02-14] MEDS ORDERED: IBUPROFEN 800 MG TABLET PO PRN (11:45)
[2017-02-14 12:00] VITALS: BP 128/60
[2017-02-14 12:27] LABS: *AMPHETAMINE, URINE POSITIVE (NEGATIVE); *BARBITURATE, URINE POSITIVE (NEGATIVE); *CANNABINOID, URINE NEGATIVE (NEGATIVE); *COCCAINE, URINE NEGATIVE (NEGATIVE); *OPIATE, URINE POSITIVE (NEGATIVE); *PHENCYCLIDINE SCREEN,URINE NEGATIVE (NEGATIVE)
[2017-02-14] MEDS ORDERED: TRAZ-147 PO (12:28)
[2017-02-14] MEDS ORDERED: LORAZEPAM 1 MG TABLET PO ONE (12:45)
[2017-02-14] MEDS: GABAPENTIN 300 MG CAPSULE PO SCH ×2 (14:36→21:00)
[2017-02-14 16:00] VITALS: BP 111/54
[2017-02-14] MEDS: LORAZEPAM 1 MG TABLET PO PRN ×2 (17:00→20:17)
[2017-02-14] MEDS: QUETIAPINE FUMARATE 25 MG TABLET PO PRN (17:29)
[2017-02-14 20:00] VITALS: BP 128/67
[2017-02-14] MEDS: CLONIDINE HCL 0.1 MG TABLET PO PRN (20:17)
[2017-02-15] MEDS: QUETIAPINE FUMARATE 25 MG TABLET PO PRN ×3 (03:50→17:03)
[2017-02-15] MEDS: LORAZEPAM 1 MG TABLET PO PRN (03:50)
[2017-02-15 04:00] VITALS: BP 110/53
[2017-02-15 08:00] VITALS: BP 109/61
[2017-02-15] MEDS ORDERED: TUBERCULIN,PURIF.PROT.DERIV. 5 TU/0.1 ML TEST ID ONE (09:00)
[2017-02-15] MEDS: DOCUSATE SODIUM 250 MG CAPSULE PO SCH (09:00)
[2017-02-15] MEDS ORDERED: LORAZEPAM 1 MG TABLET PO SCH (09:00)
[2017-02-15] MEDS: HYDROXYZINE PAMOATE 25 MG CAPSULE PO PRN (09:44)
[2017-02-15] MEDS: MULTIVITAMINS,THERAPEUTIC TABLET PO SCH (09:44)
[2017-02-15] MEDS: FOLIC ACID 1 MG TABLET PO SCH (09:45)
[2017-02-15] MEDS: BACLOFEN 20 MG TABLET PO PRN ×2 (09:45→17:03)
[2017-02-15] MEDS: THIAMINE HCL 100 MG TABLET PO SCH (09:45)
[2017-02-15] MEDS ORDERED: DIAZEPAM 10 MG TABLET PO ONE ×2 (09:45→21:00)
[2017-02-15] MEDS: GABAPENTIN 300 MG CAPSULE PO SCH ×3 (09:45→21:33)
[2017-02-15] MEDS: KETOROLAC TROMETHAMINE 30 MG INJ IM PRN ×2 (09:46→18:10)
[2017-02-15] MEDS: CLONIDINE HCL 0.1 MG TABLET PO PRN ×2 (09:59→17:03)
[2017-02-15 12:00] VITALS: BP 122/74
[2017-02-15] MEDS: DIAZEPAM 10 MG TABLET PO SCH ×3 (12:43→21:33)
[2017-02-15] MEDS ORDERED: DIAZEPAM 5 MG TABLET PO PRN (13:45)
[2017-02-15] MEDS ORDERED: DIAZEPAM 10 MG TABLET PO PRN (13:45)
[2017-02-15] MEDS: DIAZEPAM 10 MG TABLET PO PRN ×2 (14:35→18:42)
[2017-02-15 16:00] VITALS: BP 116/83
[2017-02-15 21:00] VITALS: BP 113/63
[2017-02-15] MEDS ORDERED: BACLOFEN 20 MG TABLET PO ONE (21:00)
[2017-02-15] MEDS ORDERED: KETOROLAC TROMETHAMINE 30 MG INJ IM ONE (21:00)
[2017-02-15] MEDS: SULFAMETH/TRIMETH 800/160 MG TABLET PO SCH (21:33)
[2017-02-15] MEDS ORDERED: DIAZEPAM 10 MG TABLET ONE (21:40)
[2017-02-15] MEDS ORDERED: KETOROLAC TROMETHAMINE 30 MG INJ ONE (21:40)
[2017-02-15] MEDS ORDERED: BACLOFEN 20 MG TABLET ONE (21:40)
[2017-02-15] MEDS: CLINDAMYCIN PHOSPHATE IV 900 MG in IV DEXTROSE 5% 100 ML IV SCH (22:00)
[2017-02-15] MEDS: TRAZODONE 100 MG TABLET PO PRN (22:38)
[2017-02-16] VITALS (7 sets, daily range): BP systolic 96–112; BP diastolic 38–65
[2017-02-16] MEDS: METHOCARBAMOL 750 MG TABLET PO PRN ×2 (03:13→09:14)
[2017-02-16] MEDS: HYDROXYZINE PAMOATE 25 MG CAPSULE PO PRN ×2 (03:13→09:15)
[2017-02-16] MEDS: BACLOFEN 20 MG TABLET PO PRN ×2 (03:13→09:15)
[2017-02-16] MEDS: QUETIAPINE FUMARATE 25 MG TABLET PO PRN ×2 (03:13→13:11)
[2017-02-16] MEDS: CLINDAMYCIN PHOSPHATE IV 900 MG in IV DEXTROSE 5% 100 ML IV SCH ×2 (06:00→15:14)
[2017-02-16] MEDS: GABAPENTIN 300 MG CAPSULE PO SCH ×3 (08:35→21:00)
[2017-02-16] MEDS: MULTIVITAMINS,THERAPEUTIC TABLET PO SCH (08:35)
[2017-02-16] MEDS: FOLIC ACID 1 MG TABLET PO SCH (08:35)
[2017-02-16] MEDS: SULFAMETH/TRIMETH 800/160 MG TABLET PO SCH (08:35)
[2017-02-16] MEDS: THIAMINE HCL 100 MG TABLET PO SCH (08:35)
[2017-02-16] MEDS: DIAZEPAM 10 MG TABLET PO SCH ×3 (08:35→21:00)
[2017-02-16] MEDS: DOCUSATE SODIUM 250 MG CAPSULE PO SCH (09:00)
[2017-02-16] MEDS ORDERED: LORAZEPAM 1 MG TABLET PO SCH (09:00)
[2017-02-16] MEDS: CLONIDINE HCL 0.1 MG TABLET PO PRN (09:15)
[2017-02-16] MEDS: KETOROLAC TROMETHAMINE 30 MG INJ IM PRN (09:16)
[2017-02-16] MEDS ORDERED: DIAZEPAM 5 MG TABLET PO PRN (12:45)
[2017-02-16] MEDS ORDERED: DIAZEPAM 10 MG TABLET PO PRN ×2 (12:45)
[2017-02-17] MEDS: CLINDAMYCIN PHOSPHATE IV 900 MG in IV DEXTROSE 5% 100 ML IV SCH ×5 (00:43→14:00)
[2017-02-17] MEDS: METHOCARBAMOL 750 MG TABLET PO PRN ×2 (01:58→16:41)
[2017-02-17] MEDS: HYDROXYZINE PAMOATE 25 MG CAPSULE PO PRN ×3 (01:58→16:41)
[2017-02-17] MEDS: TRAZODONE 100 MG TABLET PO PRN ×2 (01:58→21:49)
[2017-02-17] MEDS: QUETIAPINE FUMARATE 25 MG TABLET PO PRN ×2 (01:58→09:09)
[2017-02-17] MEDS: CLONIDINE HCL 0.1 MG TABLET PO PRN (01:58)
[2017-02-17 02:11] VITALS: BP 113/64
[2017-02-17 08:04] VITALS: BP 94/49
[2017-02-17] MEDS ORDERED: LORAZEPAM 1 MG TABLET PO SCH (09:00)
[2017-02-17] MEDS: DOCUSATE SODIUM 250 MG CAPSULE PO SCH (09:00)
[2017-02-17] MEDS: THIAMINE HCL 100 MG TABLET PO SCH (09:09)
[2017-02-17] MEDS: FOLIC ACID 1 MG TABLET PO SCH (09:10)
[2017-02-17] MEDS: BACLOFEN 20 MG TABLET PO PRN ×2 (09:10→16:41)
[2017-02-17] MEDS: GABAPENTIN 300 MG CAPSULE PO SCH ×3 (09:10→21:49)
[2017-02-17] MEDS: MULTIVITAMINS,THERAPEUTIC TABLET PO SCH (09:10)
[2017-02-17] MEDS: DIAZEPAM 5 MG TABLET PO SCH ×4 (09:10→21:50)
[2017-02-17 13:22] VITALS: BP 102/47
[2017-02-17 17:28] VITALS: BP 107/63
[2017-02-17] MEDS ORDERED: BUPRENORPHINE HCL 2 MG TAB.SUBL SL ONE (17:45)
[2017-02-17 20:10] VITALS: BP 114/68
[2017-02-17] MEDS ORDERED: SULFAMETH/TRIMETH 800/160 MG TABLET PO SCH (21:00)
[2017-02-17] MEDS: SULFAMETH/TRIMETH 800/160 MG TABLET PO SCH (21:49)
[2017-02-18 00:39] VITALS: BP 103/69
[2017-02-18 04:00] VITALS: BP 106/68
[2017-02-18] MEDS: THIAMINE HCL 100 MG TABLET PO SCH (08:41)
[2017-02-18] MEDS: SULFAMETH/TRIMETH 800/160 MG TABLET PO SCH ×2 (08:41→21:00)
[2017-02-18] MEDS: GABAPENTIN 300 MG CAPSULE PO SCH ×3 (08:41→21:01)
[2017-02-18] MEDS: DOCUSATE SODIUM 250 MG CAPSULE PO SCH (08:41)
[2017-02-18] MEDS: FOLIC ACID 1 MG TABLET PO SCH (08:41)
[2017-02-18] MEDS: MULTIVITAMINS,THERAPEUTIC TABLET PO SCH (08:41)
[2017-02-18] MEDS: BUPRENORPHINE HCL 2 MG TAB.SUBL SL SCH ×4 (08:41→21:01)
[2017-02-18] MEDS: DIAZEPAM 5 MG TABLET PO SCH ×3 (08:41→21:01)
[2017-02-18 08:44] VITALS: BP 112/61
[2017-02-18] MEDS ORDERED: LORAZEPAM 1 MG TABLET PO SCH (09:00)
[2017-02-18 12:29] VITALS: BP 110/66
[2017-02-18] MEDS: METHOCARBAMOL 750 MG TABLET PO PRN (12:49)
[2017-02-18 16:55] VITALS: BP 106/64
[2017-02-18 20:00] VITALS: BP 103/47
[2017-02-18] MEDS: TRAZODONE 100 MG TABLET PO PRN (22:54)
[2017-02-19] VITALS: BP 103/47
[2017-02-19] MEDS ORDERED: LORAZEPAM 1 MG TABLET PO SCH (09:00)
[2017-02-19 09:25] VITALS: BP 104/62
[2017-02-19] MEDS: DIAZEPAM 5 MG TABLET PO SCH ×2 (09:28→21:22)
[2017-02-19] MEDS: FOLIC ACID 1 MG TABLET PO SCH (09:28)
[2017-02-19] MEDS: MULTIVITAMINS,THERAPEUTIC TABLET PO SCH (09:28)
[2017-02-19] MEDS: GABAPENTIN 300 MG CAPSULE PO SCH ×3 (09:28→21:21)
[2017-02-19] MEDS: THIAMINE HCL 100 MG TABLET PO SCH (09:28)
[2017-02-19] MEDS: DOCUSATE SODIUM 250 MG CAPSULE PO SCH (09:28)
[2017-02-19] MEDS: BUPRENORPHINE HCL 2 MG TAB.SUBL SL SCH ×3 (09:29→21:22)
[2017-02-19] MEDS: SULFAMETH/TRIMETH 800/160 MG TABLET PO SCH ×2 (09:29→21:22)
[2017-02-19 13:32] VITALS: BP 103/60
[2017-02-19 17:03] VITALS: BP 94/53
[2017-02-19 20:00] VITALS: BP 96/62
[2017-02-19] MEDS: TRAZODONE 100 MG TABLET PO PRN (23:40)
[2017-02-19] MEDS ORDERED: LORAZEPAM 1 MG TABLET PO ONE (23:45)
[2017-02-19] MEDS ORDERED: KETOROLAC TROMETHAMINE 60 MG INJ IM ONE (23:45)
[2017-02-20] VITALS (7 sets, daily range): BP systolic 90–122; BP diastolic 41–63
[2017-02-20] MEDS ORDERED: BUPRENORPHINE HCL 2 MG TAB.SUBL SL SCH (09:00)
[2017-02-20] MEDS: DOCUSATE SODIUM 250 MG CAPSULE PO SCH (09:57)
[2017-02-20] MEDS: MULTIVITAMINS,THERAPEUTIC TABLET PO SCH (09:57)
[2017-02-20] MEDS: FOLIC ACID 1 MG TABLET PO SCH (09:57)
[2017-02-20] MEDS: GABAPENTIN 300 MG CAPSULE PO SCH ×3 (09:57→21:57)
[2017-02-20] MEDS: THIAMINE HCL 100 MG TABLET PO SCH (09:58)
[2017-02-20] MEDS: SULFAMETH/TRIMETH 800/160 MG TABLET PO SCH ×2 (10:55→21:57)
[2017-02-20] MEDS: BUPRENORPHINE HCL 2 MG TAB.SUBL SL SCH ×2 (14:56→21:58)
[2017-02-20] MEDS: TRAZODONE 100 MG TABLET PO PRN (23:46)
[2017-02-21 00:17] VITALS: BP 103/55
[2017-02-21 04:32] VITALS: BP 108/62
[2017-02-21 08:00] VITALS: BP 100/55
[2017-02-21] MEDS: FOLIC ACID 1 MG TABLET PO SCH (09:14)
[2017-02-21] MEDS: BUPRENORPHINE HCL 2 MG TAB.SUBL SL SCH ×3 (09:14→21:37)
[2017-02-21] MEDS: GABAPENTIN 300 MG CAPSULE PO SCH ×2 (09:14→15:17)
[2017-02-21] MEDS: DOCUSATE SODIUM 250 MG CAPSULE PO SCH (09:14)
[2017-02-21] MEDS: SULFAMETH/TRIMETH 800/160 MG TABLET PO SCH ×2 (09:14→21:36)
[2017-02-21] MEDS: MULTIVITAMINS,THERAPEUTIC TABLET PO SCH (09:14)
[2017-02-21] MEDS: THIAMINE HCL 100 MG TABLET PO SCH (09:14)
[2017-02-21 12:00] VITALS: BP 140/63
[2017-02-21] MEDS ORDERED: LIDOCAINE 1%-EPI 1:100,000 20 ML VIAL TP ONE (12:45)
[2017-02-21] MEDS ORDERED: LORAZEPAM 1 MG TABLET PO ONE (13:15)
[2017-02-21 16:59] VITALS: BP 113/56
[2017-02-21 20:00] VITALS: BP 112/76
[2017-02-21] MEDS ORDERED: GABAPENTIN 300 MG CAPSULE PO SCH (21:00)
[2017-02-21] MEDS: TRAZODONE 100 MG TABLET PO PRN (22:42)
[2017-02-22 08:00] VITALS: BP 86/34
[2017-02-22 08:30] VITALS: BP 112/60
[2017-02-22] MEDS ORDERED: BUPRENORPHINE HCL 2 MG TAB.SUBL SL SCH (09:00)
[2017-02-22] MEDS: FOLIC ACID 1 MG TABLET PO SCH (09:26)
[2017-02-22] MEDS: SULFAMETH/TRIMETH 800/160 MG TABLET PO SCH ×2 (09:26→21:20)
[2017-02-22] MEDS: GABAPENTIN 300 MG CAPSULE PO SCH ×2 (09:26→21:20)
[2017-02-22] MEDS: DOCUSATE SODIUM 250 MG CAPSULE PO SCH (09:26)
[2017-02-22] MEDS: THIAMINE HCL 100 MG TABLET PO SCH (09:26)
[2017-02-22] MEDS: MULTIVITAMINS,THERAPEUTIC TABLET PO SCH (09:27)
[2017-02-22 12:00] VITALS: BP 110/51
[2017-02-22 13:30] LABS: *AMPHETAMINE, URINE NEGATIVE (NEGATIVE); *BARBITURATE, URINE POSITIVE (NEGATIVE); *CANNABINOID, URINE NEGATIVE (NEGATIVE); *COCCAINE, URINE NEGATIVE (NEGATIVE); *OPIATE, URINE NEGATIVE (NEGATIVE); *PHENCYCLIDINE SCREEN,URINE NEGATIVE (NEGATIVE)
[2017-02-22 16:00] VITALS: BP_SYST 100; BP_SYST 106; BP_DIAS 72
[2017-02-22] MEDS: CLONIDINE HCL 0.1 MG TABLET PO PRN ×2 (18:17→22:45)
[2017-02-22 20:00] VITALS: BP 102/62
[2017-02-22] MEDS ORDERED: IBUP-1957 PO (22:11)
[2017-02-22] MEDS ORDERED: DICY20TA28 PO (22:11)
[2017-02-22] MEDS ORDERED: TRAZ-147 PO (22:11)
[2017-02-22] MEDS ORDERED: GABA-534 PO (22:11)
[2017-02-22] MEDS ORDERED: BACL20TA PO (22:11)
[2017-02-22] MEDS ORDERED: HYDR-3895 PO (22:11)
[2017-02-22] MEDS: HYDROXYZINE PAMOATE 25 MG CAPSULE PO PRN (22:46)
[2017-02-22] MEDS: TRAZODONE 100 MG TABLET PO PRN (22:46)
[2017-02-22] MEDS: METHOCARBAMOL 750 MG TABLET PO PRN (22:46)
[2017-02-23] VITALS: BP 102/62
[2017-02-23 08:00] VITALS: BP 112/74
[2017-02-23] MEDS: HYDROXYZINE PAMOATE 25 MG CAPSULE PO PRN (09:21)
[2017-02-23] MEDS: BACLOFEN 20 MG TABLET PO PRN (09:21)
[2017-02-23] MEDS: MULTIVITAMINS,THERAPEUTIC TABLET PO SCH (09:21)
[2017-02-23] MEDS: SULFAMETH/TRIMETH 800/160 MG TABLET PO SCH (09:21)
[2017-02-23] MEDS: GABAPENTIN 300 MG CAPSULE PO SCH (09:21)
[2017-02-23] MEDS: FOLIC ACID 1 MG TABLET PO SCH (09:21)
[2017-02-23] MEDS: THIAMINE HCL 100 MG TABLET PO SCH (09:21)
== END 2017-02-23 10:05 | disposition other institution (70) | DRG 895 ==
LOC: SRC 11:07
PROVIDERS: ADMIT Internal Medicine; ATTEND Internal Medicine
PROC: HZ2ZZZZ Detoxification Services for Substance Abuse Treatment (ICD-10-PCS; principal; 2017-02-14)
PROC: HZ41ZZZ Group Counseling for Substance Abuse Treatment, Behavioral (ICD-10-PCS; principal; 2017-02-14)
PROC: HZ31ZZZ Individual Counseling for Substance Abuse Treatment, Behavioral (ICD-10-PCS; 2017-02-16)
DX: F11.23 Opioid dependence with withdrawal (principal); L02.31 Cutaneous abscess of buttock; L03.317 Cellulitis of buttock; F15.20 Other stimulant dependence, uncomplicated; F13.230 Sedative, hypnotic or anxiolytic dependence with withdrawal, uncomplicated; F41.9 Anxiety disorder, unspecified; G47.00 Insomnia, unspecified; Z91.19 Patient's noncompliance with other medical treatment and regimen; F19.959 Other psychoactive substance use, unspecified with psychoactive substance-induced psychotic disorder, unspecified; F60.3 Borderline personality disorder; B19.20 Unspecified viral hepatitis C without hepatic coma; F17.210 Nicotine dependence, cigarettes, uncomplicated; S31.823S Puncture wound without foreign body of left buttock, sequela; X78.8XXS Intentional self-harm by other sharp object, sequela; Z83.3 Family history of diabetes mellitus; Z59.0 Homelessness; Z86.14 Personal history of Methicillin resistant Staphylococcus aureus infection
CPT/HCPCS: 70030-TC; 76881; 80307; 80324; 80345; 80346; 80361; 86580; A4663; J1885; J3490; J7060

== ENCOUNTER 2017-02-16 21:58 | Emergency (ER) | payer BC, OTHER ==
[~2017-02-16] VITALS: Ht 180.3 cm; Wt 74.8 kg
[~2017-02-16 21:58] MED LIST changes: -Gabapentin PO; -HYDR-3895 PO; -QUET25TA PO; -Sertraline Hcl PO; -Trazodone Hcl PO
--- NOTE | 2017-02-16 22:11 | NUR ---
[facility] SENT [facility] RT BUTTOCK.PT STATES HAS HAD ABSCESS THERE BEFORE.LAST ONE WAS A MONTH AGO AND IT WAS POSITIVE FOR MRSA.PT STATES PAIN 10/10, PT IS ALERT, ORIENTED X 4, NO RESP DISTRESS NOTED OR REPORTED UPON ASSESSMENT... MD AT BEDSIDE...
[2017-02-16] MEDS ORDERED: HYDROMORPHONE 2 MG/1 ML DISP.SYRIN ONE ×2 (22:26→22:38)
[2017-02-16] MEDS ORDERED: LORAZEPAM 2 MG/1 ML VIAL ONE (22:27)
--- NOTE | 2017-02-16 23:25 | NUR ---
Patient discharged to home in stable conditon. Written and verbal after care instructions given. Patient verbalizes understanding of instructions. Contacted [facility] advised pt has been discharged, rn here to receive pt and take back to [facility]...
[2017-02-16] MEDS ORDERED: SODIUM BICARBONATE 4.2 % (NEUT) 5 ML VIAL TP ONE (23:30)
[2017-02-16] MEDS ORDERED: LORAZEPAM 2 MG/1 ML VIAL IV ONE (23:30)
[2017-02-16] MEDS ORDERED: HYDROMORPHONE 1 MG/1 ML DISP.SYRIN IV ONE ×2 (23:30)
[2017-02-16] MEDS ORDERED: LIDOCAINE 1%-EPI 1:100,000 20 ML VIAL TP ONE (23:30)
[2017-02-16] MEDS ORDERED: CEFTRIAXONE 1 G in IV DEXTROSE 5% 50 ML IV ONE (23:30)
[2017-02-17 00:02] VITALS: BP 113/46
== END 2017-02-17 00:14 | disposition home or self-care (01) ==
LOC: ER 22:16
DX: L02.31 Cutaneous abscess of buttock (principal); F11.10 Opioid abuse, uncomplicated; F41.9 Anxiety disorder, unspecified; F32.9 Major depressive disorder, single episode, unspecified; F17.210 Nicotine dependence, cigarettes, uncomplicated
CPT/HCPCS: 10061; 96374; 96375; 99284; 99406; A4217; A4663; J1170 ×2; J2060; J3490 ×2

== ENCOUNTER 2017-06-16 20:42 | Emergency (ER) | payer BC, MEDICAID ==
[~2017-06-16] VITALS: Ht 182.9 cm; Wt 74.8 kg
[~2017-06-16 20:42] MED LIST changes: +BACL20TA PO; -Baclofen PO; -Benzocaine/Menth/Cetylpyrd Cl MM; -Famotidine PO; +GABA-534 PO; +HYDR-3895 PO; +IBUP-1957 PO; -Ibuprofen PO; -LACT1CAP72 PO; -SULF1TAB48 PO; +TRAZ-147 PO
--- NOTE | 2017-06-16 21:24 | NUR ---
Patient discharged to home in stable conditon. Written and verbal after care instructions given. Patient verbalizes understanding of instructions.
== END 2017-06-16 21:25 | disposition home or self-care (01) ==
LOC: ER 20:44
DX: Z76.0 Encounter for issue of repeat prescription (principal); S01.112D Laceration without foreign body of left eyelid and periocular area, subsequent encounter; Z59.0 Homelessness; F17.200 Nicotine dependence, unspecified, uncomplicated; X58.XXXD Exposure to other specified factors, subsequent encounter
CPT/HCPCS: 99283; A4663

== ENCOUNTER 2017-07-05 19:32 | Emergency (ER) | payer BC, MEDICAID ==
[~2017-07-05] VITALS: Ht 182.9 cm; Wt 74.8 kg
[2017-07-05] MEDS ORDERED: BUPR1FIL3 SL (19:49)
[2017-07-05 20:38] LABS: *BILIRUBIN,URIN NEGATIVE (NEGATIVE); *BLOOD, URINE NEGATIVE (NEGATIVE); *CLARITY,URINE CLOUDY (CLEAR); *COLOR,URINE YELLOW (YELLOW); *KETONES,URINE NEGATIVE (NEGATIVE); *PROTEIN,URINE NEGATIVE (NEGATIVE); LEUKOCYTE ESTERASE ,URINE NEGATIVE (NEGATIVE); NITRITE, URINE NEGATIVE (NEGATIVE); PH,URINE 8.5 (5.0-8.0); UGLUCOSE NEGATIVE (NEGATIVE)
[2017-07-05 20:52] LABS: BACTERIA,URINE NONE SEEN /HPF (NONE SEEN); RBC,URINE 0-3 /HPF (0-3); SQUAMOUS EPITHELIAL CELL,UR NONE SEEN /HPF (NONE SEEN); URINE AMORPHOUS PHOSPHATES MANY /HPF; WBC,URINE 0-3 /HPF (0-3)
[2017-07-05] MEDS ORDERED: CEFTRIAXONE 1 G VIAL IM ONE (21:30)
--- NOTE | 2017-07-05 21:42 | NUR ---
Patient discharged to home in stable conditon with family taking patient home. Written and verbal after care instructions given. Patient verbalizes understanding of instructions.
[2017-07-05 21:44] VITALS: BP 120/66
[2017-07-05] MEDS ORDERED: CEFTRIAXONE 1 G VIAL ONE (21:46)
== END 2017-07-05 21:44 | disposition home or self-care (01) ==
LOC: ER 19:32
DX: J06.9 Acute upper respiratory infection, unspecified (principal); F32.9 Major depressive disorder, single episode, unspecified; F41.9 Anxiety disorder, unspecified; Z59.0 Homelessness; F17.200 Nicotine dependence, unspecified, uncomplicated
CPT/HCPCS: 71010; 87086; A4663; J0696

== ENCOUNTER 2017-08-17 13:25 | Emergency (ER) | payer BC, MEDICAID ==
[~2017-08-17] VITALS: Ht 180.3 cm; Wt 74.8 kg
[~2017-08-17 13:25] MED LIST changes: -BACL20TA PO; +BUPR1FIL3 SL; -CLON0.1T14 PO; -DICY20TA28 PO; -HYDR-3895 PO; -IBUP-1957 PO
[2017-08-17] MEDS ORDERED: OXYCODONE/APAP 5-325 MG TABLET PO ONE (13:45)
--- NOTE | 2017-08-17 13:57 | NUR ---
Pt refused Percocet and stated he is going home. Pt ambulated out of ER with steady gait, ER physician notified.
[2017-08-17] MEDS ORDERED: OXYCODONE/APAP 5-325 MG TABLET ONE (14:06)
== END 2017-08-17 14:01 | disposition left against medical advice (07) ==
LOC: ER 13:25
DX: M54.9 Dorsalgia, unspecified (principal); F11.20 Opioid dependence, uncomplicated; F32.9 Major depressive disorder, single episode, unspecified; F41.9 Anxiety disorder, unspecified; Z59.0 Homelessness; F17.200 Nicotine dependence, unspecified, uncomplicated
CPT/HCPCS: A4663

== ENCOUNTER 2017-10-28 00:47 | Inpatient (IN) | payer BC, OTHER ==
[~2017-10-28] VITALS: Ht 180.3 cm; Wt 59.4 kg
[2017-10-28] MEDS ORDERED: LOPERAMIDE HCL 2 MG CAPSULE PO PRN ×2 (18:30)
[2017-10-28] MEDS ORDERED: ONDANSETRON ODT 4 MG TAB.RAPDIS SL PRN (18:30)
[2017-10-28] MEDS ORDERED: ONDANSETRON 4 MG/2 ML VIAL IM PRN (18:30)
[2017-10-28] MEDS ORDERED: MIRALAX 17 GM POWD.PACK PO PRN (18:30)
[2017-10-28] MEDS ORDERED: IBUPROFEN 600 MG TABLET PO PRN (18:30)
[2017-10-28] MEDS ORDERED: BUPRENORPHINE HCL 2 MG TAB.SUBL SL PRN (18:30)
[2017-10-28] MEDS ORDERED: ACETAMINOPHEN 325 MG TABLET PO PRN (18:30)
[2017-10-28] MEDS ORDERED: METHOCARBAMOL 750 MG TABLET PO PRN (18:30)
[2017-10-28] MEDS ORDERED: DICYCLOMINE HCL 20 MG TABLET PO PRN (18:30)
[2017-10-28] MEDS ORDERED: MAG HYDROX/AL HYDROX/SIMETH 30 ML LIQUID UDC PO PRN (18:30)
[2017-10-28] MEDS ORDERED: LORAZEPAM 1 MG TABLET PO PRN ×2 (18:30)
[2017-10-28] MEDS ORDERED: CLONIDINE HCL 0.1 MG TABLET PO PRN (18:30)
[2017-10-28] MEDS ORDERED: LORAZEPAM 2 MG/1 ML VIAL IM PRN (18:30)
[2017-10-28] MEDS ORDERED: MAGNESIUM HYDROXIDE 30 ML LIQUID UDC PO PRN (18:30)
--- NOTE | 2017-10-28 19:30 | NUR ---
INTAKE ASSESSMENT PT IS 27 Y/O MALE, A/A/O X 4.GAIT IS SOMEWHAT UNSTEADY.PT STATED HE IS HERE TO DETOX FROM HEROIN,XANAX AND CRYSTAL METH,STATED THAT HE TOOK XANAX 2 MG,HEROIN 2 GRAMS AND APPROXIMATELY CRYSTAL METH 2 GRAMS,JUST BEFORE COMING IN.B/P=122/62,HR=83,T=97.6,R=16.PT IS SOMEWHAT ANXIOUS AND RESTLESS.NO C/O PAIN NOTED.HE IS IN A STABLE CONDITION TO PROCEED TO [facility].
[2017-10-28 19:55] LABS: BASOPHILS # (AUTO) 0.1 K/uL (0.0-8.0); BASOPHILS % (AUTO) 0.6 % (0.0-2.0); EOSINOPHILS # (AUTO) 0.2 K/uL (0.0-0.7); EOSINOPHILS % (AUTO) 1.2 % (0.0-7.0); HEMATOCRIT 41.5 % (36.7-47.1); HEMOGLOBIN 13.8 g/dL (12.5-16.3); LYMPHOCYTES # (AUTO) 2.1 K/uL (20.0-40.0); MEAN CORPUSCULAR HEMOGLOBIN 29.4 uug (23.8-33.4); MEAN CORPUSCULAR HGB CONC 33 g/dL (32.5-36.3); MEAN CORPUSCULAR VOLUME 88.3 fL (73.0-96.2); MONOCYTES # (AUTO) 0.8 K/uL (2.0-10.0); MONOCYTES % (AUTO) 6.1 % (0.0-11.0); NEUTROPHILS # (AUTO) 9.9 K/uL (1.8-8.9); NEUTROPHILS % (AUTO) 76.1 % (38.5-71.5); PLATELET COUNT (AUTO) 349 K/uL (152-348)
[2017-10-28 20:00] VITALS: BP 122/62
[2017-10-28 20:09] LABS: ETHANOL < 3 MG/DL (0-0)
[2017-10-28 20:18] LABS: ALANINE AMINOTRANSFERASE 23 U/L (16-63); ALKALINE PHOSPHATASE 90 U/L (50-136); ASPARTATE AMINOTRANSFERASE 16 U/L (15-37); BILIRUBIN,TOTAL 0.8 mg/dL (0.2-1.0); CARBON DIOXIDE 29 mmol/L (21-32); CHLORIDE 102 mmol/L (98-107); CREATININE 0.9 mg/dL (0.6-1.3); GLUCOSE 89 mg/dL (74-106); POTASSIUM 4.1 mmol/L (3.5-5.1); TOTAL PROTEIN, SERUM 8.2 g/dL (6.4-8.2); UREA NITROGEN, BLOOD 11 mg/dL (7-18)
[2017-10-28 20:18] LABS: *AMPHETAMINE, URINE POSITIVE (NEGATIVE); *BARBITURATE, URINE NEGATIVE (NEGATIVE); *CANNABINOID, URINE NEGATIVE (NEGATIVE); *COCCAINE, URINE NEGATIVE (NEGATIVE); *OPIATE, URINE POSITIVE (NEGATIVE); *PHENCYCLIDINE SCREEN,URINE NEGATIVE (NEGATIVE)
[2017-10-28] MEDS ORDERED: LORAZEPAM 1 MG TABLET PO SCH (21:00)
--- NOTE | 2017-10-28 21:00 | NUR ---
ADMISSION NOTE HT=5 FEET; 11 INCHES. OW=865 POUNDS. B/P=124/62,HR=85,T=97.2,R=16,O2 SAT 97% AT ROOM AIR. COWS = 5. ADMITTING 27 Y/O MALE TO [facility] FOR MEDICALLY SUPERVISED WITHDRAWAL FROM OPIATES AND BENZODIAZEPINES,UNDER THE CARE OF DR KAHN AND DR HESTER.PT HAS BEEN ADMITTED TO [facility] SEVERAL TIMES AND WAS DISCHARGED FROM [facility] IN JANUARY 2017.HE WAS SOBER FOR 6 MONTHS AND THEN RELAPSED IN THE BEGINNING OF AUGUST.PT REPORTS TAKING XANAX PO UPTO 10 MGS;HEROIN 2 GRAMS IM/SMOKE AND CRYSTAL METH APPROXIMATELY 2 GRAMS VIA SMOKE ON A DAILY BASIS FOR THE PAST 2 MONTHS.ALSO REPORTED DRINKING "ONE CAP FULL " OF GHB TODAY.PT REPORTED USING ALL THESE 1 HR PRIOR TO COMING IN.PT INITIALLY STARTED USING THESE DRUGS SINCE HE WAS 16 YEARS OLD.HIS LONGEST PERIOD OF BEING SOBER WAS 16 MONTHS AND IT WAS IN 2009,EXTENDED IN 2010.PT REPORTS WITHDRAWAL INDUCED SEIZURES,LAST ONE WAS IN JULY 2016.PT HAS NO KNOWN ALLERGIES TO FOOD/MEDICINE,PLACED ON FULL CODE STATUS AND REGULAR DIET.PT HAS HX OF ANXIETY,DEPRESSION,HEPATITIC C,BRONCHITIS AND CHRONIC TOBACCO USE.SKIN IS INTACT,WARM AND DRY TO TOUCH,PT HAS A SUPERFICIAL ABRASION ON HIS RIGHT WRIST,PHOTO TAKEN AND PLACED IN CHART.NO S/S OF INFECTION NOTED.ABDOMEN IS SOFT WITH B/S PRESENT X 4,BREATHING IS EVEN AND NON LABORED.NO C/O PAIN NOTED.PT LIVES IN HIS APARTMENT WITH HIS GIRL FRIEND.HE DOES NOT HAVE A PCP.ORIENTED TO ROOM AND UNIT,CARE PLAN AND SAFETY CHECKS INITIATED,EDUCATION MATERIAL PROVIDED,SNACKS PROVIDED,ALL SAFETY MEASURES IN PLACE WITH CALL LIGHT WITHIN REACH.MD'S NOTIFIED.WILL CONTINUE TO MEDICATE PER ORDERS AND MONITOR FOR SAFETY. Addendum: 10/29/17 at 0340 by MIHIR BOWER RN CIWA ON ADMISSION = 5.
--- NOTE | 2017-10-28 21:30 | NUR ---
MED REFUSAL PT REFUSED TO TAKE ATIVAN ORDERED.RISKS AND BENEFITS EXPLAINED.PT STATED "ATIVAN DOES NOT DO ANYTHING FOR ME.I NEED VALIUM". NOTIFIED,NO NEW ORDERS NOTED..
--- NOTE | 2017-10-28 21:55 | NUR ---
PRN TYLENOL AND MOM GIVEN ORDERED FOR C/O HEADACHE 02/05 AND CONSTIPATION RESPECTIVELY.WILL MONITOR FOR EFFECTIVENESS.
--- NOTE | 2017-10-28 23:00 | NUR ---
PRN F/U PT IS SLEEPING PEACEFULLY IN HIS BED.UNABLE TO ASSESS AT THIS TIME.
[2017-10-29] VITALS: BP 102/52
--- NOTE | 2017-10-29 | NUR ---
COWS/CIWA DEFERRED DUE TO PT BEING ASLEEP.PT IS SLEEPING COMFORTABLY,BREATHING IS EVEN AND NON LABORED,ALL SAFETY MEASURES IN PLACE,WITH CALL LIGHT WITHIN REACH.WILL CONTINUE TO MONITOR.
--- NOTE | 2017-10-29 03:06 | NUR ---
PRN ATIVAN 2 MG PO GIVEN FOR CIWA 12.WILL MONITOR FOR EFFECTIVENESS.
[2017-10-29 04:00] VITALS: BP 106/53
--- NOTE | 2017-10-29 04:00 | NUR ---
PRN ATIVAN IS HELPFUL.CIWA DECREASED TO 7.WILL CONTINUE TO MONITOR.
--- NOTE | 2017-10-29 06:49 | NUR ---
END OF SHIFT PT IS RESTING IN BED WITH EYES CLOSED,SLEPT INTERMITTENTLY FOR 5 HRS.PRN ATIVAN 2 MG PO WAS GIVEN X 1 AND WAS EFFECTIVE.HE REFUSED 2100 DOSE OF ATIVAN ORDERED.FOCUSED ON TAKING VALIUM,STATED THAT ATIVAN DOES NOT HELP HIM.FLUID INTAKE WAS 1180 MLS, VOIDED X 2.PRN TYLENOL AND MOM WERE GIVEN.NO B/M REPORTED YET.WILL ENDORSE TO AM NURSE TO FOLLOW UP.LAST CIWA=7,COWS=5.PT IS ON FALL AND SEIZURE PRECAUTIONS.ALL SAFETY MEASURES IN PLACE,SIDE RAILS UP AND PADDED X2; CALL LIGHT IS WITHIN REACH.WILL ENDORSE TO ONCOMING SHIFT NURSE.
[2017-10-29 08:00] VITALS: BP 100/65
--- NOTE | 2017-10-29 08:15 | NUR ---
START OF SHIFT: RECEIVED PT A/O X 4 LAYING IN BED. HE STATES HE DOES NOT FEEL THAT SICK YET AND WANTS TO WAIT FOR MEDICATION FOR A WHILE. HE STATES HE HAS BODY ACHES AND INTERMITTENT CHILLS WITH SOME GENERALIZED WEAKNESS AND MALAISE. ENCOURAGED INCREASED FLUIDS. WILL ATTEMPT TO DO FULL ASSESSMENT AND MEDICATE CLOSER TO 1000. CALL LUCERO IN REACH. BED LOCKED AND LOW. SZ PRECAUTIONS IN PLACE.
[2017-10-29] MEDS ORDERED: BUPRENORPHINE HCL 2 MG TAB.SUBL SL SCH ×2 (09:00→14:00)
[2017-10-29] MEDS ORDERED: TUBERCULIN,PURIF.PROT.DERIV. 5 TU/0.1 ML TEST ID ONE (09:00)
[2017-10-29] MEDS ORDERED: LORAZEPAM 1 MG TABLET PO SCH (09:00)
--- NOTE | 2017-10-29 10:06 | NUR ---
0800 COWS AND CIWA DEFERRED. 0900 MEDS REFUSED. MADE AWARE.
[2017-10-29] MEDS ORDERED: NICOTINE 14 MG/24HR PATCH TD PRN (10:45)
[2017-10-29] MEDS ORDERED: DIAZEPAM 10 MG TABLET PO PRN ×2 (10:45)
[2017-10-29] MEDS ORDERED: DIAZEPAM 5 MG TABLET PO PRN (10:45)
[2017-10-29] MEDS ORDERED: NICOTINE POLACRILEX 4 MG GUM-PK OF TEN BC PRN (10:45)
[2017-10-29] MEDS: DIAZEPAM 10 MG TABLET PO SCH ×2 (11:55→13:24)
--- NOTE | 2017-10-29 11:55 | NUR ---
COWS 11 CIWA 13. COLLECTED STREP A AND INFLUENZA SWABS AND SENT TO LAB. HE PRESENTS WITH BLUNTED AFFECT AND DEPRESSED MOOD. HE REPORTS ANXIETY ,RESTLESSNESS, STOMACH CRAMPS AND IRRITABILITY. VALIUM 10 MG PO GIVEN ORDERED. WILL START SUBUTEX AT 1400 ORDERED.
[2017-10-29 12:00] VITALS: BP 101/62
--- NOTE | 2017-10-29 15:25 | NUR ---
PT TOLD CLINICIAN HE WANTS TO LEAVE AMA. MULTIDISCIPLINARY TEAM INVOLVED IN TRYING TO REDIRECT PT.
--- NOTE | 2017-10-29 16:20 | NUR ---
PT LEFT AMA AT 1614 DESPITE INTERVENTIONS FROM TEAM. LAUNDRY WAS SENT OUT TO BE CLEANED AND HAS NOT RETURNED.A LIST OF COMMUNITY RESOURCES WAS GIVEN. AMA FORM SIGNED. HE DENIED S/I AND H/I. PT STATED HE WILL COME BACK FOR CLOTHING AND MEDS. COMPUTING ARCHITECT ESCORTED PT OFF OF HOSPITAL PROPERTY.
[2017-10-29] MEDS ORDERED: GABAPENTIN 300 MG CAPSULE PO SCH (21:00)
[2017-10-30 08:07] LABS: HEPATITIS B SURFACE AG Negative (Negative)
[2017-10-30] MEDS ORDERED: DIAZEPAM 10 MG TABLET PO SCH (09:00)
[2017-10-30] MEDS ORDERED: LORAZEPAM 1 MG TABLET PO SCH (09:00)
[2017-10-30] MEDS ORDERED: BUPRENORPHINE HCL 2 MG TAB.SUBL SL SCH (09:00)
[2017-10-31] MEDS ORDERED: DIAZEPAM 5 MG TABLET PO SCH (09:00)
[2017-10-31] MEDS ORDERED: LORAZEPAM 1 MG TABLET PO SCH (09:00)
[2017-10-31] MEDS ORDERED: BUPRENORPHINE HCL 2 MG TAB.SUBL SL SCH ×2 (09:00→15:00)
[2017-11-01] MEDS ORDERED: LORAZEPAM 1 MG TABLET PO SCH (09:00)
[2017-11-01] MEDS ORDERED: DIAZEPAM 5 MG TABLET PO SCH (09:00)
[2017-11-01] MEDS ORDERED: BUPRENORPHINE HCL 2 MG TAB.SUBL SL SCH (09:00)
[2017-11-02] MEDS ORDERED: LORAZEPAM 1 MG TABLET PO SCH (09:00)
[2017-11-02] MEDS ORDERED: DIAZEPAM 5 MG TABLET PO SCH (09:00)
[2017-11-02] MEDS ORDERED: BUPRENORPHINE HCL 2 MG TAB.SUBL SL SCH (09:00)
== END 2017-10-29 16:14 | disposition left against medical advice (07) | DRG 894 ==
LOC: SRC 18:19
PROVIDERS: ADMIT Internal Medicine; ATTEND Internal Medicine
PROC: HZ2ZZZZ Detoxification Services for Substance Abuse Treatment (ICD-10-PCS; principal; 2017-10-28)
DX: F11.23 Opioid dependence with withdrawal (principal); B19.20 Unspecified viral hepatitis C without hepatic coma; F15.10 Other stimulant abuse, uncomplicated; F17.210 Nicotine dependence, cigarettes, uncomplicated; F13.239 Sedative, hypnotic or anxiolytic dependence with withdrawal, unspecified; F90.9 Attention-deficit hyperactivity disorder, unspecified type; Z91.89 Other specified personal risk factors, not elsewhere classified; F60.3 Borderline personality disorder; D72.829 Elevated white blood cell count, unspecified; F32.9 Major depressive disorder, single episode, unspecified; F41.9 Anxiety disorder, unspecified; Z83.3 Family history of diabetes mellitus
CPT/HCPCS: 36415; 71045; 80307; 80324; 80346; 80361; 83735; 85025; 86403; 86592; 86705; 86803; 87070; 87340; 87400; 87806; A4663; G0480

== ENCOUNTER 2018-07-31 20:07 | Inpatient (IN) | payer BC, OTHER ==
[~2018-07-31] VITALS: Ht 180.3 cm; Wt 71.7 kg
[~2018-07-31 20:07] MED LIST changes: -TRAZ-147 PO; +TRAZ-214 PO
[2018-08-04] MEDS ORDERED: diphenhydrAMINE 50 MG CAPSULE PO PRN (22:30)
[2018-08-04] MEDS ORDERED: LORAZEPAM 2 MG/1 ML VIAL IM PRN (22:30)
[2018-08-04] MEDS ORDERED: SRC BENZO WITHDRAWAL ADMITTING PROTOCOL XX PRN (22:30)
[2018-08-04] MEDS ORDERED: HYDROXYZINE PAMOATE 25 MG CAPSULE PO PRN (22:30)
[2018-08-04] MEDS ORDERED: CLONIDINE HCL 0.1 MG TABLET PO PRN (22:30)
[2018-08-04] MEDS ORDERED: LORAZEPAM 1 MG TABLET PO PRN ×2 (22:30)
[2018-08-04] MEDS ORDERED: ONDANSETRON 4 MG/2 ML VIAL IM PRN (22:30)
[2018-08-04] MEDS ORDERED: LOPERAMIDE HCL 2 MG CAPSULE PO PRN ×2 (22:30)
[2018-08-04] MEDS ORDERED: ONDANSETRON ODT 4 MG TAB.RAPDIS SL PRN (22:30)
[2018-08-04] MEDS ORDERED: MIRALAX 17 GM POWD.PACK PO PRN (22:30)
[2018-08-04] MEDS ORDERED: IBUPROFEN 600 MG TABLET PO PRN (22:30)
[2018-08-04] MEDS ORDERED: MAG HYDROX/AL HYDROX/SIMETH 30 ML LIQUID UDC PO PRN (22:30)
[2018-08-04] MEDS ORDERED: METHOCARBAMOL 750 MG TABLET PO PRN (22:30)
[2018-08-04] MEDS ORDERED: ACETAMINOPHEN 325 MG TABLET PO PRN (22:30)
[2018-08-04] MEDS ORDERED: SRC OPIOID WITHDRAWAL ADMITTING PROTOCOL XX PRN (22:30)
[2018-08-04] MEDS ORDERED: MAGNESIUM HYDROXIDE 30 ML LIQUID UDC PO PRN (22:30)
[2018-08-04] MEDS ORDERED: BUPRENORPHINE HCL 2 MG TAB.SUBL SL PRN (22:30)
[2018-08-04 22:59] LABS: *AMPHETAMINE, URINE POSITIVE (NEGATIVE); *BARBITURATE, URINE NEGATIVE (NEGATIVE); *CANNABINOID, URINE NEGATIVE (NEGATIVE); *COCCAINE, URINE NEGATIVE (NEGATIVE); *OPIATE, URINE POSITIVE (NEGATIVE); *PHENCYCLIDINE SCREEN,URINE NEGATIVE (NEGATIVE)
[2018-08-04] MEDS ORDERED: LORAZEPAM 1 MG TABLET PO ONE (23:45)
[2018-08-04] MEDS ORDERED: TRAZODONE 50 MG TABLET PO ONE (23:45)
[2018-08-05] VITALS: BP 126/78
[2018-08-05 04:00] VITALS: BP 112/58
[2018-08-05 08:00] VITALS: BP 93/53
[2018-08-05] MEDS: MULTIVITAMINS,THERAPEUTIC TABLET PO SCH (09:00)
[2018-08-05] MEDS ORDERED: TUBERCULIN,PURIF.PROT.DERIV. 5 TU/0.1 ML TEST ID ONE (09:00)
[2018-08-05] MEDS ORDERED: 5 DAY TAPER VALIUM-SERENITY PROTOCOL PO PRN (11:30)
[2018-08-05] MEDS: DIAZEPAM 10 MG TABLET PO SCH ×3 (11:55→21:52)
[2018-08-05 12:00] VITALS: BP 93/44
[2018-08-05] MEDS: GABAPENTIN 300 MG CAPSULE PO SCH ×2 (12:59→17:23)
[2018-08-05] MEDS ORDERED: TRAZODONE 50 MG TABLET PO PRN (15:30)
[2018-08-05 16:30] VITALS: BP 126/54
[2018-08-05 20:00] VITALS: BP 108/60
[2018-08-06] VITALS: BP 116/66
[2018-08-06 08:00] VITALS: BP 124/63
[2018-08-06] MEDS ORDERED: 4 DAY TAPER BUPRENORPHINE -SERENITY PROTOCOL SL PRN (09:00)
[2018-08-06] MEDS: BUPRENORPHINE HCL 2 MG TAB.SUBL SL SCH ×3 (09:11→21:42)
[2018-08-06] MEDS: DIAZEPAM 5 MG TABLET PO SCH ×4 (09:11→21:42)
[2018-08-06] MEDS: GABAPENTIN 300 MG CAPSULE PO SCH ×3 (09:11→17:05)
[2018-08-06] MEDS: MULTIVITAMINS,THERAPEUTIC TABLET PO SCH (09:11)
[2018-08-06] MEDS ORDERED: DICYCLOMINE HCL 20 MG TABLET PO PRN (10:15)
[2018-08-06] MEDS: LORAZEPAM 1 MG TABLET PO PRN ×2 (10:20→14:35)
[2018-08-06 12:10] VITALS: BP 106/62
[2018-08-06] MEDS ORDERED: NALO4SPR NS (13:45)
[2018-08-06 16:00] VITALS: BP 124/59
[2018-08-06 18:19] LABS: BASOPHILS # (AUTO) 0.1 K/uL (0.0-8.0); BASOPHILS % (AUTO) 0.8 % (0.0-2.0); HEMATOCRIT 41.1 % (36.7-47.1); HEMOGLOBIN 14.1 g/dL (12.5-16.3); LYMPHOCYTES # (AUTO) 1.3 K/uL (20.0-40.0); LYMPHOCYTES % (AUTO) 16.9 % (20.5-51.5); MEAN CORPUSCULAR HEMOGLOBIN 29.1 uug (23.8-33.4); MEAN CORPUSCULAR HGB CONC 34 g/dL (32.5-36.3); MEAN CORPUSCULAR VOLUME 85.1 fL (73.0-96.2); MONOCYTES # (AUTO) 0.3 K/uL (2.0-10.0); MONOCYTES % (AUTO) 3.5 % (0.0-11.0); NEUTROPHILS # (AUTO) 5.8 K/uL (1.8-8.9); NEUTROPHILS % (AUTO) 78.8 % (38.5-71.5); PLATELET COUNT (AUTO) 335 K/uL (152-348); RED BLOOD CELL COUNT(AUTO) 4.83 MIL/uL (4.06-5.63); WHITE BLOOD COUNT (AUTO) 7.4 K/uL (3.6-10.2)
[2018-08-06 19:02] LABS: THYROID STIMULATING HORMONE 0.179 mIU/mL (0.358-3.740)
[2018-08-06 19:05] LABS: ALANINE AMINOTRANSFERASE 46 U/L (16-63); ALKALINE PHOSPHATASE 97 U/L (50-136); ASPARTATE AMINOTRANSFERASE 28 U/L (15-37); BILIRUBIN,TOTAL 0.5 mg/dL (0.2-1.0); CARBON DIOXIDE 24 mmol/L (21-32); CHLORIDE 104 mmol/L (98-107); CREATININE 0.7 mg/dL (0.6-1.3); GLUCOSE 116 mg/dL (74-106); MAGNESIUM 2.1 mg/dL (1.8-2.4); TOTAL PROTEIN, SERUM 7.5 g/dL (6.4-8.2); UREA NITROGEN, BLOOD 11 mg/dL (7-18)
[2018-08-06 19:16] LABS: ETHANOL < 3 MG/DL (0-0)
[2018-08-06 20:00] VITALS: BP 106/70
[2018-08-07] MEDS ORDERED: BUPRENORPHINE HCL 2 MG TAB.SUBL SL SCH ×2 (09:00→15:00)
[2018-08-07] MEDS ORDERED: DIAZEPAM 5 MG TABLET PO SCH (09:00)
[2018-08-08 08:06] LABS: HEPATITIS B SURFACE AG Negative (Negative)
[2018-08-08] MEDS ORDERED: DIAZEPAM 5 MG TABLET PO SCH (09:00)
[2018-08-08] MEDS ORDERED: BUPRENORPHINE HCL 2 MG TAB.SUBL SL SCH (09:00)
[2018-08-09] MEDS ORDERED: DIAZEPAM 5 MG TABLET PO SCH (09:00)
[2018-08-09] MEDS ORDERED: BUPRENORPHINE HCL 2 MG TAB.SUBL SL SCH (09:00)
== END 2018-08-07 05:28 | disposition left against medical advice (07) | DRG 894 ==
LOC: SRC 08-04 21:28
PROVIDERS: ADMIT Family Medicine Addiction Medicine; ATTEND Family Medicine Addiction Medicine
PROC: HZ2ZZZZ Detoxification Services for Substance Abuse Treatment (ICD-10-PCS; principal; 2018-08-04)
PROC: HZ31ZZZ Individual Counseling for Substance Abuse Treatment, Behavioral (ICD-10-PCS; 2018-08-06)
DX: F13.230 Sedative, hypnotic or anxiolytic dependence with withdrawal, uncomplicated (principal); G40.509 Epileptic seizures related to external causes, not intractable, without status epilepticus; F41.1 Generalized anxiety disorder; F15.23 Other stimulant dependence with withdrawal; F90.9 Attention-deficit hyperactivity disorder, unspecified type; B19.20 Unspecified viral hepatitis C without hepatic coma; F17.210 Nicotine dependence, cigarettes, uncomplicated; F60.3 Borderline personality disorder; Z59.0 Homelessness; Z83.3 Family history of diabetes mellitus; G47.00 Insomnia, unspecified; F32.9 Major depressive disorder, single episode, unspecified; F11.229 Opioid dependence with intoxication, unspecified
CPT/HCPCS: 36415; 71045; 80307; 80324; 80346; 80361; 83735; 84443; 85025; 86580; 86592; 86705; 86803; 87340; 87806; G0480; Q0162

== ENCOUNTER 2019-06-01 06:04 | Emergency (ER) | payer BC, OTHER ==
[~2019-06-01] VITALS: Ht 182.9 cm; Wt 81.6 kg
[~2019-06-01 06:04] MED LIST changes: -BUPR1FIL3 SL; +NALO4SPR NS
--- NOTE | 2019-06-01 06:30 | NUR ---
MD AT BEDSIDE FOR HX AND PHYSICAL
[2019-06-01] MEDS ORDERED: IBUPROFEN 600 MG TABLET ONE (06:41)
--- NOTE | 2019-06-01 06:43 | NUR ---
MARKETING DATABASE CONSULTANT AT BEDSIDE PT ABLE TO TOLERATE PO MEDS ORDERED PN AT 7/10 WHEN SITTING, 10/10 WHEN LAYING DOWN.. R SHOULDER /COLLAR BONE SIDERAILSX2 UP BED AT LOWEST POSITION MONITORED ACCORDINGLY
[2019-06-01] MEDS ORDERED: IBUPROFEN 600 MG TABLET PO ONE (06:45)
--- NOTE | 2019-06-01 07:08 | NUR ---
COPY PROVIDED FROM RADIOLOGY Patient discharged to home in stable conditon. Written and verbal after care instructions given. Patient verbalizes understanding of instructions. ALL BELONGINGS W/ PT AMBULATORY W/ STABLE GAIT
[2019-06-01 07:12] VITALS: BP 113/78
== END 2019-06-01 07:14 | disposition home or self-care (01) ==
LOC: ER 06:04
DX: S42.001A Fracture of unspecified part of right clavicle, initial encounter for closed fracture (principal); F17.210 Nicotine dependence, cigarettes, uncomplicated; Z79.899 Other long term (current) drug therapy; W18.39XA Other fall on same level, initial encounter; Y93.89 Activity, other specified; Y92.89 Other specified places as the place of occurrence of the external cause; Y99.8 Other external cause status
CPT/HCPCS: 73000; 73030; A4663